=== PATIENT | female | born 1950 | race Caucasian/White ===

== ENCOUNTER 2019-02-20 16:45 | Inpatient (IN) ==
[2019-02-20] MEDS ORDERED: NICODERM PATCH TD PRN (19:30)
--- NOTE | 2019-02-20 20:18 | HISTORY AND PHYSICAL ---
CHIEF COMPLAINT: Cough, shortness of breath, wheezing since last Monday. HISTORY OF PRESENT ILLNESS: She is a 69-year-old white female has been suffering from metastatic pancreatic cancer, under the care of [facility] in [place], getting chemotherapy as well as radiation therapy to the liver, also getting hemodialysis twice a week by Dr. Saxena. Came in with the above symptoms. She is markedly wheezing, appears to be in mild respiratory distress. Continues to smoke. Chest x-ray is negative, except for the dialysis catheter on the right side and port on the left side. Admitted to the hospital for acute COPD exacerbation. PAST MEDICAL HISTORY: COPD, end-stage kidney disease on dialysis, atypical chest pain, Cardiolite stress test was negative November 2018, depression, type 2 diabetes, acid reflux disease, hypertension, metastatic pancreatic cancer, posterior reversible encephalopathy syndrome, history of shingles at C7-T1 distribution on the right side. PAST SURGICAL HISTORY: Cholecystectomy, hysterectomy, left-sided port, bilateral cataract surgery, right subclavian tunnel catheter, AV graft on the left side is nonfunctioning. MEDICATIONS: Xanax 0.25 once daily. Amlodipine 10 daily. Coreg 25 p.o. b.i.d. Clonidine 0.2 twice daily. Furosemide as needed. Hydralazine 50 twice daily. Prilosec 20 daily. Remeron 15 daily. Zoloft 50 daily. ALLERGIES: Cipro and Talwin. SOCIAL HISTORY: , 1 kid. Now smoking half a pack a day. No alcohol. No drug abuse. Lives in [place]. Retired from [employer]. FAMILY HISTORY: Father at the age of 79 from COPD. Mom is 85 years old with diabetes, hypertension, heart disease. Brothers had heart attacks. REVIEW OF SYSTEMS: HEENT: No headache. No vision problem. No earache. No sore throat. Neck: No goiter. No lymphadenopathy. No bruit. Cardiac: No chest pain. Respiratory: Shortness of breath, cough, and wheezing. Gastrointestinal: Upper abdominal discomfort. No bleeding per rectum. No constipation. Genitourinary: No history of hesitancy, frequency, dysuria. Musculoskeletal: No swelling of feet. No joint pain. Neurologic: No focal symptoms or weakness. EXAMINATION: Vital signs: In my office, she has a low-grade fever. Blood pressure is 136/65. Weight: 128 pounds. General: Mild respiratory distress. Slightly pale. HEENT: TMs are normal. Nose and throat within normal limits. Neck: Supple. JVD is not elevated. Chest: Tunneled catheter on the right side and port on the left side. Bilateral wheezing. Heart: Sounds are regular. Abdomen: Belly is soft, nontender. No ascites. Extremities: No peripheral edema. Neurological: No neurological deficits. DIAGNOSTIC STUDIES: Chest x-ray is stable. Rest of the labs are pending. ASSESSMENT AND PLAN: A 69-year-old white female, admitted to the hospital with: 1. Acute chronic obstructive pulmonary disease exacerbation. Oxygen, IV steroids, IV antibiotics. 2. End-stage kidney disease, on dialysis twice a week. Patient is due for dialysis on Monday. 3. Tobacco abuse. Quit smoking. 4. Acid reflux disease. On Prilosec. 5. Reactive depression. On Zoloft and Xanax. 6. Type 2 diabetes. On Lantus and Humalog. 7. Hypertension. On hydralazine, Norvasc, Coreg and Lasix. 8. Insomnia. On Remeron. 9. Metastatic pancreatic cancer. Under the care of [facility]. Recently had some radiation treatment to the liver. 10. Monoclonal gammopathy of unknown significance, stable. 11. History of posterior reversible encephalopathy syndrome, stable. Patient is not taking seizure medications. 12. Left arm arteriovenous graft is not working. Using tunnel catheter. 13. Reconcile home medications and we will follow up. cc: Tyree Lucas MD
[2019-02-20 20:39] LABS: BASO# 0.04 X1000 (0.0-0.2); BASO% 0.3 % (0.0-0.8); EOS% 2.5 % (0.0-10.0); HEMOGLOBIN 10.4 g/dL (12.0-16.0); IMM GRAN# 0.53 X1000 (0.0-0.04); IMM GRAN% 4.4 % (0.0-0.5); LYMPH# 1.14 X1000 (1.2-3.4); LYMPH% 9.4 % (20.5-51.1); MCH 31.9 PG (27-31); MCHC 31.5 g/dL (33-37); MCV 101.2 FL (81-99); MONO% 11.5 % (1.7-9.3); MPV 10.4 FL (7.4-10.4); NEUT# 8.75 X1000 (1.4-6.5); NEUT% 71.9 % (42.2-75.2); PLT 150 X1000 (130-400); RBC 3.26 XMIL (4.2-5.4); RDW 14.9 % (11.5-14.5); WBC 12.16 X1000 (4.8-10.8)
[2019-02-20 20:55] LABS: ALB/GLOB RATIO 1.5; ALBUMIN 3.8 g/dL (3.5-5.0); BANDS 1 % (0-1); CALCIUM 8.5 mg/dL (8.8-10.2); CREATININE 2.3 mg/dL (0.5-0.9); EOS 1 % (1-10); LYMPHS 2 % (21-51); MONO 11 % (1-9); POTASSIUM 4.1 mmol/L (3.5-5.1); SEGS 85 % (42-75); TOTAL BILIRUBIN 0.29 mg/dL (0.20-1.00); TOTAL PROTEIN 6.4 g/dL (6.3-8.3)
[2019-02-20] MEDS: DUONEB (A & A) INH PRN (21:26)
[2019-02-20] MEDS: REMERON PO SCH (22:07)
[2019-02-20] MEDS: COREG PO SCH (22:07)
[2019-02-20] MEDS: APRESOLINE PO SCH (22:07)
[2019-02-20] MEDS: ATIVAN PO SCH (22:07)
[2019-02-20] MEDS: LOVENOX SUBQ SCH (22:08)
[2019-02-20] MEDS: ROCEPHIN 1 GM in NS 50 ML IV SCH (22:08)
[2019-02-20] MEDS: LANTUS INSULIN SUBQ SCH (22:08)
[2019-02-20] MEDS: HUMULIN R SUBQ SCH ×2 (22:09→22:15)
[2019-02-20 22:15] LABS: ALLEN TEST YES; BE -1.9 mmoll (-3.0-3.0); BLOOD TYPE ARTERIAL; HCO3-(ACT) 23.4 mmoll (20.0-26.0); METHB 0.6 % (0.0-1.5); O2(CT) 13.7 mL/dL (15.0-23.0); O2HB 93.4 % (95.0-99.0); PCO2(98.6) 34 mmHg (35-45); PO2(98.6) 67 mmHg (60-100); SAMPLE BLOOD; SAO2 95.2 % (95.0-100.0); THB 10.4 g/dL (11.5-17.4); pH(98.6) 7.42 (7.35-7.45)
[2019-02-20 22:16] LABS: MODALITY ROOM AIR
[2019-02-20] MEDS: ZITHROMAX 500 MG/NS 500 MG/250 ML IVPB IV SCH (22:37)
[2019-02-21] MEDS: HUMULIN R SUBQ SCH ×5 (06:32→23:13)
[2019-02-21] MEDS: BREO ELLIPTA 100/25 MCG INH INH SCH (07:34)
[2019-02-21] MEDS: DUONEB (A & A) INH PRN ×2 (07:35→15:20)
[2019-02-21] MEDS: SPIRIVA INH SCH (07:35)
[2019-02-21] MEDS: NORVASC PO SCH (08:18)
[2019-02-21] MEDS: SOLU-MEDROL IV SCH (08:18)
[2019-02-21] MEDS: APRESOLINE PO SCH ×2 (08:18→23:11)
[2019-02-21] MEDS: COREG PO SCH ×2 (08:18→23:18)
[2019-02-21] MEDS: ASPIRIN PO SCH (08:18)
[2019-02-21 08:21] LABS: URINE SOURCE CLEAN CATCH
[2019-02-21 08:37] LABS: BILIRUBIN URINE NEGATIVE (NEGATIVE); BLOOD URINE NEGATIVE (NEGATIVE); COLOR YELLOW; GLUCOSE URINE 200 mg/dL (NEGATIVE); KETONE URINE NEGATIVE (NEGATIVE); LEUKOCYTES URINE NEGATIVE (NEGATIVE); NITRITE URINE NEGATIVE (NEGATIVE); PROTEIN URINE 50 mg/dL (NEGATIVE); SP GRAVITY URINE 1.011; TURBIDITY URINE CLEAR (CLEAR); UROBILINOGEN URINE NORMAL (NORMAL)
[2019-02-21 08:39] LABS: UR EPITHELIAL CELLS <10 /HPF (<10); URINE BACTERIA NEGATIVE /HPF; URINE RBC <10 /HPF (<10); URINE WBC <10 /HPF (<10)
--- NOTE | 2019-02-21 22:45 | PROGRESS NOTE ---
DATE: 02/21/2019 SUBJECTIVE: The patient is getting better. Still wheezing. Withdrawal from smoking. No chest pain. Blood sugars running high. Blood pressure is running high. The patient is due for dialysis tomorrow. OBJECTIVE: Vital signs: Temperature is 97.9 degrees, pulse 78, blood pressure is 170/75. HEENT: Within normal limits. Neck: Supple. No lymphadenopathy. Chest: Bilateral air entry wheezing. Heart: Sounds are regular. Abdomen: Belly is soft, nontender. Neurologic: No neurological deficits. INVESTIGATIONS: None reported. Creatinine 2.3. Glucose 260. LFTs were high. ASSESSMENT AND PLAN: 1. Acute chronic obstructive pulmonary disease exacerbation. Plan is nicotine patch, IV steroids, bronchodilators, IV antibiotics with Zithromax and Rocephin. 2. Uncontrolled diabetes, worsening. Increasing the Lantus insulin 20 units along with sliding scale insulin coverage. 3. End-stage kidney disease on dialysis tomorrow. We will ask Dr. Saxena to consult. 4. Metastatic pancreatic cancer, status post chemotherapy and radiation as per [facility] in [place]. 5. Hypertension. Continue present treatment. 6. Deep venous thrombosis prophylaxis and repeat the labs in the morning. LEVEL OF DOCUMENTATION: 25 minutes. cc: Tyree Lucas MD
[2019-02-21] MEDS: ROCEPHIN 1 GM in NS 50 ML IV SCH (23:09)
[2019-02-21] MEDS: ATIVAN PO SCH (23:12)
[2019-02-21] MEDS: REMERON PO SCH (23:12)
[2019-02-21] MEDS: LOVENOX SUBQ SCH (23:14)
[2019-02-21] MEDS: LANTUS INSULIN SUBQ SCH (23:14)
[2019-02-22] MEDS: ZITHROMAX 500 MG/NS 500 MG/250 ML IVPB IV SCH (01:04)
[2019-02-22] MEDS: HUMULIN R SUBQ SCH ×3 (06:48→17:37)
[2019-02-22] MEDS ORDERED: TIGHT: 0.2 ML/HR FOR DIALYSIS MISC PRN (07:30)
[2019-02-22] MEDS ORDERED: HEPARIN IV PRN (07:30)
[2019-02-22] MEDS ORDERED: NS 2,000 ML MISC PRN (07:30)
[2019-02-22 07:51] LABS: CALCIUM 9.1 mg/dL (8.8-10.2); CREATININE 2.4 mg/dL (0.5-0.9); POTASSIUM 4.5 mmol/L (3.5-5.1)
[2019-02-22 09:18] LABS: BASO# 0.12 X1000 (0.0-0.2); BASO% 0.9 % (0.0-0.8); EOS# 0.06 X1000 (0.0-0.7); EOS% 0.4 % (0.0-10.0); HEMATOCRIT 32.2 % (37.0-47.0); HEMOGLOBIN 10.3 g/dL (12.0-16.0); IMM GRAN# 0.58 X1000 (0.0-0.04); IMM GRAN% 4.1 % (0.0-0.5); LYMPH# 0.62 X1000 (1.2-3.4); LYMPH% 4.4 % (20.5-51.1); MCH 33.4 PG (27-31); MCV 104.5 FL (81-99); MONO# 1.15 X1000 (0.11-0.59); MONO% 8.2 % (1.7-9.3); NEUT# 11.58 X1000 (1.4-6.5); PLT 127 X1000 (130-400); RBC 3.08 XMIL (4.2-5.4); RDW 15.6 % (11.5-14.5); WBC 14.11 X1000 (4.8-10.8)
[2019-02-22] MEDS: SPIRIVA INH SCH (10:54)
[2019-02-22] MEDS: BREO ELLIPTA 100/25 MCG INH INH SCH (10:55)
[2019-02-22 11:54] VITALS: BP 189/73
[2019-02-22] MEDS: COREG PO SCH (11:58)
[2019-02-22] MEDS: NORVASC PO SCH (11:58)
[2019-02-22] MEDS: ASPIRIN PO SCH (11:58)
[2019-02-22] MEDS: APRESOLINE PO SCH (11:58)
[2019-02-22] MEDS: SOLU-MEDROL IV SCH (11:58)
--- NOTE | 2019-02-22 14:11 | Diag Imaging Result Doc PS360 ---
EXAM: CHEST-2 VIEWS HISTORY: assess pulmonary edema TECHNIQUE: Chest two views COMPARISON: 03/29/2018 FINDINGS: The lungs are well expanded. The heart is not enlarged. No change in the double lumen right jugular line or in the left subclavian portacatheter. The vessels are not distended. There are no infiltrates. No pleural effusions. Mild compression to the T12 vertebra not present on 03/03/2018. IMPRESSION: No pulmonary edema. Electronically signed by Bonilla Mackay 02/22/2019 2:08 PM
--- NOTE | 2019-02-22 17:16 | NEPHROLOGY CONSULTATION ---
DATE: 02/22/2019 REASON FOR CONSULTATION: Assistance with management. I was contacted directly by Dr. Lucas. HISTORY OF PRESENT ILLNESS: Ms. Rangel is a 69-year-old, white female with multiple medical problems. She has pancreatic cancer and is undergoing chemotherapy for management of this. She has stage 5 chronic kidney disease and is receiving routine hemodialysis. She goes twice weekly. Within the last 2 weeks, she has been complaining of feeling bad after dialysis and getting very little fluid. I replaced her with 2 L of fluid such that she went out about 1.5 kg above her dry weight. She states she felt much better after this and has required very little ultrafiltration at dialysis. However, she sought attention with Dr. Lucas yesterday because of worsening shortness of breath and cough. His clinical evaluation in his office led to a diagnosis of COPD exacerbation. She was admitted to the hospital and treated accordingly. She is receiving methylprednisolone and ceftriaxone as well as inhaled bronchodilators. Her symptoms are significantly better this morning. According to her dry weight, she was approximately 3 kg over her newly increased dry weight as of this morning. PAST MEDICAL HISTORY: As above. She also has diabetes, hypertension, and hyperlipidemia. HOME MEDICATIONS: Include carvedilol, mirtazapine, cephalexin, hydralazine, insulin, omeprazole, ondansetron, oxycodone, pantoprazole, pyridoxine, sertraline, cetirizine, alprazolam. ALLERGIES: Propoxyphene, ciprofloxacin. SOCIAL HISTORY: She is and lives alone. Continues to smoke. No alcohol. FAMILY HISTORY: Otherwise noncontributory. REVIEW OF SYSTEMS: Otherwise noncontributory. PHYSICAL EXAMINATION: Vital Signs: Blood pressure 185/84, heart rate 83, respirations 17, afebrile. General: No acute distress. Skin is warm and dry. HEENT: Conjunctivae are pink. Pupils are equal. Neck veins are not distended. Heart: Regular. No gallops. Lungs: Equal. No crackles or wheezes. Abdomen: Soft, nontender. Bowel sounds are present. Extremities: Have no edema, clubbing, or cyanosis. Neurologic: Examination grossly nonfocal. IMPRESSION: Chronic kidney disease stage 5D. She has some residual renal function and is only dialyzing twice weekly. We did recently adjust her dry weight as above and so it is certainly possible that this change has led to pulmonary edema, though her clinical exam and x-ray did not support that in Dr. Lucas's office. We will continue her current dry weight and see how she tolerates 3 L of ultrafiltration today. Her electrolytes, acid-base, and anemia are all in target. Blood pressure is above target but we will reassess after dialysis. cc: MD Tyree Estrada MD [facility]
--- NOTE | 2019-02-24 07:39 | DISCHARGE SUMMARY ---
ADMISSION DATE: 02/20/2019 DISCHARGE DATE: 02/22/2019 DISCHARGING DIAGNOSIS: 1. Acute chronic obstructive pulmonary disease exacerbation. 2. End-stage kidney disease on hemodialysis, slowly improving. 3. Depression. 4. Type 2 diabetes. 5. Hypertension. 6. Acid reflux disease. 7. Metastatic pancreatic cancer. 8. History of posterior reversible encephalopathy syndrome. CONSULTS: Dr. Saxena. PROCEDURE: Inpatient dialysis. BRIEF HISTORY: Please see the H and P that was done on 02/20/2019. In brief, she is a 69-year- old white female with above problems who came in my office with cough, shortness of breath, and wheezing. The patient was very bronchospastic. Chest x-ray was stable. She continues to smoke. She has been on radiation and chemotherapy for metastatic pancreatic cancer at [facility]. The patient got better with IV steroids, bronchodilators and IV antibiotics. LABORATORY DATA: CBC: White cell count 14, hematocrit 32, platelet 127,000. Sodium 140, potassium 4.5, chloride 108, BUN 47, creatinine 2.4, glucose 173, calcium 9.1. Elevated liver function tests. Urinalysis is clear. Chest x-ray had a tunneled catheter on the right side, port on the left side. Creatinine was improving. Dr. Saxena is slowly downgrading the frequency of the hemodialysis, right now she is getting it twice a week. DISCHARGE INSTRUCTIONS: 1. Coreg 25 p.o. b.i.d. 2. Remeron 15 mg at bedtime. 3. Hydralazine 100 p.o. b.i.d. 4. Lantus 20 units at bedtime. 5. Humulin regular insulin as per sliding scale. 6. Prilosec 20 daily. 7. Percocet 1 tablet q.6 as needed for pain. 8. Protonix 40 mg daily. 9. Pyridoxine 25 mg daily. 10. Zoloft 50 daily. 11. Cetirizine 10 daily. 12. Xanax 0.25 at bedtime. 13. Levaquin 250 daily. 14. Continue the inhalers which include Breo and Spiriva as directed. Quit smoking. Follow up with Dr. Saxena for maintenance for hemodialysis and also metastatic pancreatic cancer with [facility]. cc: MD Jake Cutler MD [facility]
== END 2019-02-22 20:07 | disposition home or self-care (01) | DRG 190 ==
LOC: DIRADM 16:45 → 3N 20:02
PROVIDERS: ADMIT Internal Medicine; ATTEND Internal Medicine
CPT/HCPCS: 71020; 71046; 80048; 80053; 81001; 82805; 82948; 85025; 94640; 94760; 94761; A9270; J0456; J0696; J1644; J1650; J1815; J2930; J7030; XXXXX

== ENCOUNTER 2019-07-08 11:59 | Inpatient (IN) ==
[2019-07-08] MEDS ORDERED: PERCOCET-5 PO PRN (14:30)
--- NOTE | 2019-07-08 14:45 | EKG Report ---
Test Performed on : 07/08/2019 2:39:35 PM Test Reason : chest pain Blood Pressure : / mmHG Vent. Rate : 080 BPM Atrial Rate : 080 BPM P-R Int : 154 ms QRS Dur : 084 ms QT Int : 396 ms P-R-T Axes : 087 087 080 degrees QTc Int : 456 ms Normal sinus rhythm. Nonspecific ST abnormality Abnormal ECG When compared with ECG of 11-APR-2019 20:13, ST now depressed in Inferior leads ST now depressed in Lateral leads Unconfirmed Result
[2019-07-08 15:08] LABS: BASO# 0.03 X1000 (0.0-0.2); BASO% 0.3 % (0.0-0.8); EOS# 0.15 X1000 (0.0-0.7); EOS% 1.5 % (0.0-10.0); HEMATOCRIT 40.4 % (37.0-47.0); HEMOGLOBIN 13.1 g/dL (12.0-16.0); IMM GRAN# 0.12 X1000 (0.0-0.04); IMM GRAN% 1.2 % (0.0-0.5); LYMPH# 0.79 X1000 (1.2-3.4); MCH 32.1 PG (27-31); MCHC 32.4 g/dL (33-37); MONO# 1.11 X1000 (0.11-0.59); MONO% 11.2 % (1.7-9.3); MPV 10.3 FL (7.4-10.4); NEUT# 7.73 X1000 (1.4-6.5); NEUT% 77.8 % (42.2-75.2); PLT 110 X1000 (130-400); RBC 4.08 XMIL (4.2-5.4); RDW 15.7 % (11.5-14.5); WBC 9.93 X1000 (4.8-10.8)
[2019-07-08 15:27] LABS: CALCIUM 8.1 mg/dL (8.8-10.2); CALCIUM 8.5 mg/dL (8.8-10.2); CREATININE 2.4 mg/dL (0.5-0.9); POTASSIUM 3.5 mmol/L (3.5-5.1); TOTAL BILIRUBIN 1.18 mg/dL (0.20-1.00); TOTAL PROTEIN 5.9 g/dL (6.3-8.3)
[2019-07-08] MEDS ORDERED: APRESOLINE PO ONE (15:55)
[2019-07-08] MEDS: SODIUM CHLORIDE 0.9% INJ SCH (16:07)
[2019-07-08] MEDS: PROTONIX IV SCH (16:07)
[2019-07-08] MEDS: ROCEPHIN 1 GM in NS 50 ML IV SCH (16:17)
[2019-07-08] MEDS: DUONEB (A & A) INH PRN ×2 (16:32→22:59)
[2019-07-08] MEDS: HUMULIN R SUBQ SCH ×2 (17:09→20:52)
[2019-07-08] MEDS: ZITHROMAX 500 MG/NS 500 MG/250 ML IVPB IV SCH (18:54)
--- NOTE | 2019-07-08 19:12 | GENERAL SURGERY CONSULTATION ---
DATE: 07/08/2019 REQUESTING PHYSICIAN: Dr. Lucas. CONSULT CONCERNING: Jugular vein thrombosis. HISTORY OF PRESENT ILLNESS: A 69-year-old female, well known to me who I placed a graft in her arm. She has had it clotted off. She does have a history of pancreatic cancer, which she should be receiving therapy for. She presented to the emergency department initially with left arm swelling. Had an ultrasound that showed an occlusion of her graft in her left upper extremity which is known and a jugular vein thrombosis. I was asked to weigh an opinion of the patient without significant issues at this point or significant complaints. Says she is not hurting in her neck at this moment. PAST MEDICAL HISTORY: COPD, chronic kidney disease, atypical chest pain, depression, type 2 diabetes, acid reflux, metastatic pancreatic cancer, posterior reversible encephalopathy syndrome, history of shingles, hypertension. PAST SURGICAL HISTORY: Includes cholecystectomy, hysterectomy, left subclavian port, bilateral cataract surgery, tunneled catheter placements, and AV graft. ALLERGIES: Full list reviewed. HOME MEDICATIONS: Reviewed. MAR reviewed. SOCIAL: Smoker. FAMILY HISTORY: Positive for COPD. REVIEW OF SYSTEMS: Full 14 systems reviewed and negative as specified in HPI. PHYSICAL EXAMINATION: Vital Signs: Patient is currently afebrile. Her vital signs stable. General: No acute distress. HEENT: Normocephalic, atraumatic. Pupils equal, round, reactive to light. Mucous membranes moist. Oropharynx benign. Neck: Supple. Trachea midline. Cardiovascular: Regular rate and rhythm. Lungs: Grossly clear. Abdomen: Soft, nontender, nondistended. Extremities: No real swelling noted to the left upper extremity at this time. Vascular: All extremities perfused. Neurologic: Grossly intact. Skin: No signs of jaundice. LABORATORY: White blood cell count is normal. Hematocrit is normal. Platelet count 110,000. ASSESSMENT/PLAN: A 69-year-old female with jugular vein thrombosis. Jugular vein thrombosis. At this time, agree with putting her on anticoagulation. She does have a port in, but it is subclavian. This may or may not be contributing to it, but she needs it for her metastatic cancer. At this time, I would recommend transition over to Coumadin or Xarelto, but she has been started on at least therapeutic Lovenox. Would like to see how she responds at this and plan on repeating the imaging in the near future. I appreciate the consult. Kenji#: [id number] cc: MD Tyree Toribio MD
[2019-07-08] MEDS: APRESOLINE PO SCH (20:49)
[2019-07-08] MEDS: XANAX PO SCH (20:49)
[2019-07-08] MEDS: REMERON PO SCH (20:50)
[2019-07-08] MEDS: LOVENOX SUBQ SCH (20:51)
[2019-07-08] MEDS: LANTUS INSULIN SUBQ SCH (20:52)
[2019-07-08] MEDS ORDERED: APRESOLINE IV PRN (21:23)
--- NOTE | 2019-07-08 22:19 | HISTORY AND PHYSICAL ---
CHIEF COMPLAINT: 1. Left-sided neck pain. 2. Cough. Shortness of breath. Wheezing. HISTORY OF PRESENT ILLNESS: She is a 69-year-old white female who was seen in the emergency room on 07/05/2019. Sent home on Levaquin and Coumadin. She had extremity venous studies on the left side reported left IJ thrombosis. She has a port on the left side. She is not receiving any chemo for underlying metastatic pancreatic cancer for the last 2 months. She also has a cough, shortness of breath, wheezing. Chest x-ray left lingular infiltrate. The patient fails to improve over the weekend and called my office today that she is not doing very well. Basically, admitted to the hospital for IV antibiotics, anticoagulation and further management. Dr. Francisco Javier Saenz's consult was initiated. Whether we will need to keep the port or not. He has also put the AV graft on the left arm which is nonfunctional. She is off dialysis. As a result, a hospital admission was warranted. PAST MEDICAL HISTORY: COPD, oxygen dependent, chronic renal failure off hemodialysis, creatinine is 2.6. Noncritical CAD, depression, type 2 diabetes, acid reflux disease, hypertension, monoclonal gammopathy of unknown significance, IgG kappa metastatic pancreatic cancer off chemotherapy, posterior reversible encephalopathy syndrome, history of shingles on the C7-T1 distribution on the right side. PAST SURGICAL HISTORY: Cholecystectomy, hysterectomy, left-sided port, bilateral cataract surgery, removal of subclavian tunnel catheter, status post AV graft on the left side by Dr. Francisco Javier Saenz. MEDICATIONS: Coreg 25 p.o. b.i.d., Remeron 15 mg at bedtime, hydralazine 100 p.o. b.i.d., Lantus 20 units at bedtime, Prilosec 20 daily, Zofran 8 mg as needed, pyridoxine 25 daily, Zoloft 50 daily, Cetirizine 10 daily, Xanax 0.25 at bedtime. Recently started on warfarin and Levaquin. Lasix 40 mg daily. ALLERGIES: Propoxyphene, ciprofloxacin, pentazocine. SOCIAL HISTORY: [employer] lives in [place]. . One kid. Smoking half a pack a day. No drug abuse. No alcohol abuse. FAMILY HISTORY: Father of COPD at 79. Mom is still alive with 85 years old, history of chronic kidney disease, hypertension, diabetes. HEALTH MAINTENANCE: Influenza vaccine 2018, pneumococcal 2017. Last mammography 2017. Colonoscopy 2012. REVIEW OF SYSTEMS: HEENT: No headache. No vision problem. Left-sided neck pain and swelling. Cardiopulmonary: No chest pain. Shortness of breath, cough, and wheezing. GI: No nausea, vomiting, abdominal pain. : No history of hesitancy, frequency, dysuria. No swelling of legs. Skin: No skin rashes. No joint pain. Neurologic: No focal symptoms or weakness. PHYSICAL EXAMINATION: VITAL SIGNS: Temperature is 97.5 degrees, pulse is 80, blood pressure is 125/63, 93% on room air. HEENT: Atraumatic, normocephalic. Pupils equal, reactive to light. No jaundice. TMs are normal. Nose and throat congested. NECK: Supple. No lymphadenopathy. CHEST: Bilateral air entry, wheezing. HEART: Distant heart sounds and no signs of pneumonitis. BREAST EXAM: Deferred. ABDOMEN: Belly is soft, nontender. Good bowel sounds. EXTREMITIES: No peripheral edema or cyanosis. Left AV graft is nonfunctional. NEUROLOGIC: No obvious neurological deficits. INVESTIGATIONS: CBC: White cell count 9.9, hematocrit 40, platelets 110,000. Sodium 143, potassium 3.5, chloride 105, BUN 42, creatinine 2.4, glucose 293. LFTs were high. Chest x-ray left inguina infiltrate. EKG normal sinus QT interval [address] depression in inferior leads, nonspecific. Extremity venous study left-sided occlusion of the internal jugular vein thrombosis, chronically occluded brachial AV graft. ASSESSMENT AND PLAN: 1. A 69-year-old white female admitted to the hospital with left internal jugular thrombosis with underlying port and pancreatic cancer. We will start on Lovenox 40 subcu b.i.d.. Surgical consult whether we need to remove the port or not. Slowly transition into either Coumadin on Xarelto. We will adjust based on the creatinine clearance. 2. Type 2 diabetes on Lantus and sliding scale with insulin coverage. 3. Chronic obstructive pulmonary disease exacerbation. Oxygen, bronchodilators and IV steroids. 4. Antibiotics with ceftriaxone and Zithromax. 5. Chronic kidney disease, stable. 6. Hypertension with posterior encephalopathy reversible syndrome (PERS syndrome). Continue the hydralazine 100 p.o. b.i.d. and we will use these as needed. 7. Reactive depression. Continue on Remeron and Zoloft. 8. Peripheral neuropathy on pyridoxine. 9. Chronic anxiety on Xanax. 10. Chronic pain. Percocet as needed. 11. Flu shot was given 2018. 12. Quit smoking. 13. Metastatic pancreatic cancer under care of [facility]. Slightly worsening of the pancreatic cancer. The CA19-9 is increasing and we will follow up. I appreciated Dr. Francisco Javier Saenz's consult. cc: Tyree Lucas MD
[2019-07-09] MEDS: HUMULIN R SUBQ SCH ×4 (06:04→20:58)
[2019-07-09 07:03] LABS: URINE SOURCE CLEAN CATCH
[2019-07-09 07:09] LABS: BILIRUBIN URINE NEGATIVE (NEGATIVE); BLOOD URINE NEGATIVE (NEGATIVE); COLOR YELLOW; GLUCOSE URINE TRACE mg/dL (NEGATIVE); KETONE URINE NEGATIVE (NEGATIVE); LEUKOCYTES URINE NEGATIVE (NEGATIVE); NITRITE URINE NEGATIVE (NEGATIVE); PROTEIN URINE 30 mg/dL (NEGATIVE); SP GRAVITY URINE 1.015; TURBIDITY URINE CLEAR (CLEAR); UROBILINOGEN URINE NORMAL (NORMAL)
[2019-07-09 07:10] LABS: UR EPITHELIAL CELLS <10 /HPF (<10); URINE BACTERIA NEGATIVE /HPF; URINE RBC <10 /HPF (<10); URINE WBC <10 /HPF (<10)
--- NOTE | 2019-07-09 08:23 | GENERAL SURGERY PROGRESS NOTE ---
DATE: 07/09/2019 SUBJECTIVE: Patient seems to be doing okay. She says she is hurting less. OBJECTIVE: Vital Signs: Patient is currently afebrile. Her vital signs are stable. General: No acute distress. HEENT: Normocephalic, atraumatic. Pupils equal, round, and reactive to light. Mucous membranes moist. Oropharynx benign. Neck: Supple. Trachea midline. Cardiovascular: Regular rate and rhythm. Lungs: Grossly clear. Abdomen: Soft, nontender, nondistended. Extremities: No swelling noted of left upper extremity. Vascular: All extremities perfused. Neurologic: Grossly intact. LABORATORY: None this morning as of yet. ASSESSMENT AND PLAN: A 69-year-old female with jugular vein thrombus. Jugular vein thrombus on the left side at this time. She is having a hypercoagulable state secondary to her cancer. She does have metastatic pancreatic cancer. She does have a subclavian port, but at this time it sounds like she needs the port for chemotherapy. She does not seem to have an axillary vein issue at this point on the ultrasound so I do not think it is occluding the whole area. Thus, I do not know if removal will expedite the resolution of the DVT. At this point, I would recommend to continue anticoagulation and follow-up ultrasound of her neck and upper extremities in the next several months. cc: MD Tyree Toribio MD [facility]
[2019-07-09] MEDS: PYRIDOXINE PO SCH (09:56)
[2019-07-09] MEDS: ZYRTEC PO SCH (09:57)
[2019-07-09] MEDS: LOVENOX SUBQ SCH ×2 (09:57→20:57)
[2019-07-09] MEDS: APRESOLINE PO SCH ×2 (09:57→20:57)
[2019-07-09] MEDS: ZOLOFT PO SCH (09:57)
[2019-07-09] MEDS: SOLU-MEDROL IV SCH (09:57)
[2019-07-09] MEDS: DUONEB (A & A) INH PRN ×2 (13:27→23:41)
[2019-07-09] MEDS: ROCEPHIN 1 GM in NS 50 ML IV SCH (14:26)
[2019-07-09] MEDS: PROTONIX IV SCH (14:26)
[2019-07-09] MEDS: SODIUM CHLORIDE 0.9% INJ SCH (14:27)
[2019-07-09] MEDS: ZITHROMAX 500 MG/NS 500 MG/250 ML IVPB IV SCH (16:51)
[2019-07-09] MEDS: LANTUS INSULIN SUBQ SCH (20:58)
[2019-07-09] MEDS: XANAX PO SCH (21:02)
[2019-07-09] MEDS: REMERON PO SCH (21:02)
--- NOTE | 2019-07-09 21:24 | PROGRESS NOTE ---
DATE: 07/09/2019 SUBJECTIVE: The patient is doing very well. Decreased cough and wheezing, shortness of breath. REVIEW OF SYSTEMS: None reported. PHYSICAL EXAMINATION: Temperature is 98 degrees, pulse 78. Blood pressure is stable.HEENT: Within normal limits. Neck: Supple. Chest: Decreased wheezing. Heart sounds are regular. Belly is soft, nontender. No obvious deficits. INVESTIGATIONS: CBC: White cell count 9.9, hematocrit 40, platelets 110,000. SMA 7: Creatinine 2.4. ASSESSMENT AND PLAN: 1. Chronic obstructive pulmonary disease with left lingular pneumonia. Currently receiving IV steroids, ceftriaxone, Zithromax, and bronchodilators. 2. 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 We will continue on Lovenox, adjusted dose with chronic kidney disease, and will slowly swap into oral anticoagulants. 3. Metastatic prostate cancer, history of port. Plan is check CA-19-9. 4. We will repeat the chest x-ray in the morning. 5. Hypertension and diabetes stable. Continue present treatment. LEVEL OF DOCUMENTATION: 25 minutes. cc: Tyree Lucas MD
[2019-07-10] MEDS: HUMULIN R SUBQ SCH ×5 (06:18→21:05)
--- NOTE | 2019-07-10 06:37 | GENERAL SURGERY PROGRESS NOTE ---
DATE: 07/10/2019 SUBJECTIVE: Patient seems to be doing okay. No complaints from the patient. OBJECTIVE: Vital Signs: Patient is currently afebrile. Her vital signs are stable. General: No acute distress. HEENT: Normocephalic, atraumatic. Pupils equal, round, and reactive to light. Mucous membranes moist. Oropharynx benign. Neck: Supple. No neck swelling. Trachea midline. Cardiovascular: Regular rate and rhythm. Lungs: Grossly clear. Abdomen: Soft, nontender, and nondistended. Extremities: Moves all extremities. No swelling noted. Vascular: All extremities perfused. Neurologic: Grossly intact. Skin: No signs of jaundice or phlegmasia. ASSESSMENT AND PLAN: A 69-year-old female with jugular vein thrombus. Jugular vein thrombus on the left side. At this time, continue anticoagulation. I think it is probably safe to start transitioning over to p.o. anticoagulation, but we will defer to her primary care physician. No immediate plans to remove the port at this time. cc: MD Tyree Toribio MD
[2019-07-10] MEDS: DUONEB (A & A) INH PRN ×3 (08:00→21:41)
[2019-07-10] MEDS: ZYRTEC PO SCH (09:22)
[2019-07-10] MEDS: ZOLOFT PO SCH (09:22)
[2019-07-10] MEDS: APRESOLINE PO SCH ×2 (09:22→20:58)
[2019-07-10] MEDS: PYRIDOXINE PO SCH (09:22)
[2019-07-10] MEDS: SOLU-MEDROL IV SCH (09:24)
[2019-07-10] MEDS: LOVENOX SUBQ SCH ×2 (09:27→21:00)
--- NOTE | 2019-07-10 10:12 | Diag Imaging Result Doc PS360 ---
EXAM: CHEST-2 VIEWS INDICATION: hypoxia TECHNIQUE: 2 views COMPARISON: 07/05/2019 FINDINGS: The left chest port is in stable position. There is stable nodular densities at the left lower lung zone. The ill-defined opacity at the lingula seen previously has diminished. This likely represents resolving atelectasis. No new consolidation is identified. There is no discrete pleural fluid collection or pneumothorax. The cardiomediastinal silhouette and central vasculature are grossly unremarkable. IMPRESSION: Interval improvement of mild opacity associated with the lingula on the previous study. Stable chest, otherwise. Electronically signed by Ramírez Gutierrez 07/10/2019 10:10 AM
[2019-07-10] MEDS: ROCEPHIN 1 GM in NS 50 ML IV SCH (15:52)
[2019-07-10] MEDS: SODIUM CHLORIDE 0.9% INJ SCH (15:53)
[2019-07-10] MEDS: MYCELEX TROCHE PO SCH ×2 (15:53→21:01)
[2019-07-10] MEDS: PROTONIX IV SCH (15:53)
[2019-07-10] MEDS ORDERED: MBX SOLUTION MT PRN (17:03)
[2019-07-10] MEDS: LASIX PO SCH (17:16)
[2019-07-10] MEDS: ZITHROMAX 500 MG/NS 500 MG/250 ML IVPB IV SCH (17:17)
[2019-07-10] MEDS: XANAX PO SCH (20:56)
[2019-07-10] MEDS: REMERON PO SCH (20:58)
[2019-07-10] MEDS: LANTUS INSULIN SUBQ SCH (21:02)
--- NOTE | 2019-07-10 23:28 | PROGRESS NOTE ---
DATE: 07/10/2019 SUBJECTIVE: The patient is a little better. Complains of oral thrush. OBJECTIVE: Vital signs: Temp is 98 degrees, pulse 103. Vitals are stable. Blood pressure is still running high. HEENT: Decreased swelling in the left neck. Lungs: Decreased wheezing. Heart: Sounds are regular. Abdomen: Belly is soft, nontender. Neurologic: No obvious deficits noted. INVESTIGATIONS: Chest x-ray was improving on the left lingular infiltrate. ASSESSMENT AND PLAN: 1. Left lingular pneumonia. 2. Chronic obstructive pulmonary disease exacerbation. 3. Left internal jugular thrombosis. 4. Metastatic pancreatic cancer. 5. Chronic kidney disease. Adjusted dose of Lovenox 30 mg subcutaneous b.i.d. I spoke to the patient about using the Eliquis or Xarelto. The patient is going to find out whether insurance is going to pay for or not. Check the CA-19-9 tomorrow. Added clotrimazole for oral thrush and slowly swap the medications over the weekend, either Eliquis or Xarelto, based on the insurance coverage. Other option is Coumadin. LEVEL OF DOCUMENTATION: 25 minutes. cc: Tyree Lucas MD [facility]
[2019-07-11] MEDS: MYCELEX TROCHE PO SCH ×4 (04:04→19:48)
[2019-07-11] MEDS: HUMULIN R SUBQ SCH ×5 (06:26→20:29)
[2019-07-11] MEDS: DUONEB (A & A) INH PRN (07:46)
[2019-07-11] MEDS: LASIX PO SCH (09:43)
[2019-07-11] MEDS: ZOLOFT PO SCH (09:43)
[2019-07-11] MEDS: ZYRTEC PO SCH (09:43)
[2019-07-11] MEDS: APRESOLINE PO SCH ×4 (09:43→20:29)
[2019-07-11] MEDS: SOLU-MEDROL IV SCH (09:43)
[2019-07-11] MEDS: PYRIDOXINE PO SCH (09:44)
[2019-07-11] MEDS: LANTUS INSULIN SUBQ SCH ×2 (09:44→20:29)
[2019-07-11] MEDS: LOVENOX SUBQ SCH ×3 (09:44→20:29)
--- NOTE | 2019-07-11 10:10 | GENERAL SURGERY PROGRESS NOTE ---
DATE: 07/11/2019 SUBJECTIVE: Patient seems to be doing okay. No major issues. OBJECTIVE: Vital Signs: Patient is currently afebrile. Her vital signs stable. General exam: No acute distress. HEENT: Normocephalic, atraumatic. Pupils equal, round, reactive to light. Mucous membranes moist oropharynx benign neck is supple. Trachea midline. Cardiovascular regular rhythm. Lungs grossly clear. Abdomen soft, nontender, nondistended. Extremities: Moves all extremities. No swelling noted. Vascular: All extremities perfused. Neurologic: Grossly intact. Skin: No signs of jaundice. ASSESSMENT AND PLAN: A 69-year-old female with jugular vein thrombosis: 1. Jugular vein thrombus on the left side. At this time, continue anticoagulation. Transition to p.o. anticoagulation when appropriate with the patient's primary care physician. 2. Also looks like she is being treated for pneumonia, so that will likely dictate how long she is in the hospital. 3. We will continue to follow. cc: MD Tyree Toribio MD
[2019-07-11] MEDS: ROCEPHIN 1 GM in NS 50 ML IV SCH (16:14)
[2019-07-11] MEDS: PROTONIX IV SCH (16:14)
[2019-07-11] MEDS: ZITHROMAX 500 MG/NS 500 MG/250 ML IVPB IV SCH (16:58)
[2019-07-11] MEDS: XANAX PO SCH ×2 (19:48→20:29)
[2019-07-11] MEDS: REMERON PO SCH ×2 (19:48→20:29)
--- NOTE | 2019-07-11 20:50 | PROGRESS NOTE ---
DATE: 07/11/2019 SUBJECTIVE: The patient is doing better. Pneumonia is getting better, and on examination, oral thrush is getting better. Patient is concerned blood pressure is running high, as well as blood sugars dropping in the morning. OBJECTIVE: HEENT exam within normal limits. No swelling in the left neck. Chest has bilateral air entry, and the heart sounds are regular. Belly is soft, nontender. Good bowel sounds. INVESTIGATIONS: CA19-9 is 2500. ASSESSMENT AND PLAN: 1. Metastatic pancreatic cancer, worsening. 2. Left internal jugular thrombosis. We will transition into Eliquis 5 mg p.o. b.i.d. 3. Chronic kidney disease, stable. 4. Hypertension. Increasing hydralazine 100 t.i.d. If no better, consider slowly titrating the medications. 5. Diabetes early hypoglycemia. Change the Lantus 10 units subcutaneous b.i.d. 6. Pneumonia is getting better and if she continues to get better, we will discharge in the morning. I appreciated Dr. Saenz's input. LEVEL OF DOCUMENTATION: 25 minutes. cc: Tyree Lucas MD MTDD
[2019-07-12] MEDS: MYCELEX TROCHE PO SCH ×2 (03:23→08:22)
[2019-07-12] MEDS ORDERED: D50W SYRINGE IV ONE (05:27)
[2019-07-12] MEDS ORDERED: D50W SYRINGE ONE (05:30)
[2019-07-12] MEDS: HUMULIN R SUBQ SCH (06:00)
--- NOTE | 2019-07-12 06:54 | GENERAL SURGERY PROGRESS NOTE ---
DATE: 07/12/2019 SUBJECTIVE: Patient doing well. She had a little bit of an issue with her blood sugar going down, but has done well since she was given some juice. She is complaining of a little bit of swelling on her left neck, but otherwise it is improving. OBJECTIVE: Vital Signs: Patient is currently afebrile. Her vital signs are stable. General: No acute distress. HEENT: Normocephalic, atraumatic. Pupils equal, round, and reactive to light. Mucous membranes moist. Oropharynx benign. Neck: Supple. Trachea midline. Cardiovascular: Regular rate and rhythm. Lungs: Grossly clear. Abdomen: Soft, nontender, and nondistended. Extremities: Moves all extremities. Neurologic: Grossly intact. Skin: No signs of jaundice. Vascular: All extremities perfused. LABORATORY: None this morning as of yet but she did have a glucose of 38. ASSESSMENT/PLAN: A 69-year-old female with jugular vein thrombosis. 1. Jugular vein thrombosis on the left side at this time continue anticoagulation. She has been continued on her Lovenox and will be transitioned over to Eliquis. 2. Hypoglycemia. At this time, it is improved clinically with p.o. intake. We will continue to follow while she is in the hospital. cc: MD Tyree Toribio MD
[2019-07-12 08:11] VITALS: BP 199/82
[2019-07-12] MEDS: ZOLOFT PO SCH (08:21)
[2019-07-12] MEDS: APRESOLINE PO SCH (08:21)
[2019-07-12] MEDS: PYRIDOXINE PO SCH (08:22)
[2019-07-12] MEDS: ZYRTEC PO SCH (08:22)
[2019-07-12] MEDS: LASIX PO SCH (08:22)
[2019-07-12] MEDS: LOVENOX SUBQ SCH (08:24)
[2019-07-12] MEDS: LANTUS INSULIN SUBQ SCH (08:25)
[2019-07-12] MEDS: SOLU-MEDROL IV SCH (08:25)
--- NOTE | 2019-07-13 16:34 | DISCHARGE SUMMARY ---
ADMISSION DATE: 07/08/2019 DISCHARGE DATE: 07/12/2019 DISCHARGING DIAGNOSES: 1. Left lingular pneumonia. 2. Left internal jugular thrombosis. 3. Chronic obstructive pulmonary disease on oxygen dependent. 4. Chronic renal failure, creatinine 2.6. 5. Noncritical coronary artery disease. 6. Depression. 7. Metastatic pancreatic cancer. 8. Type 2 diabetes. 9. Acid reflux disease. 10. Hypertension. 11. Monoclonal gammopathy of unknown significance, IgG kappa. 12. History of posterior reversible encephalopathy syndrome. 13. Port on the left side of the chest. 14. Malfunction of the arteriovenous graft in the left arm. CONSULTS: Dr. Saenz. BRIEF HISTORY: Please see the H and P that was done 07/08/2019. In brief, she is a 69-year-old white female who was admitted to the hospital with left internal jugular thrombosis and also cough, congestion and fever. Chest x-ray showed left lingular pneumonia. HOSPITAL COURSE: 1. The patient was given Lovenox for IJ thrombosis, subsequently, changed to the Eliquis. Dr. Saenz was consulted, and he does not want to remove the port at this time since she needs to the chemotherapy. 2. For pneumonia, she was given IV antibiotics with Rocephin and Zithromax and bronchodilators, IV steroids. 3. Blood sugars are dropping in the morning. I cut down the Lantus, 5 in the evening, 15 in the morning. 4. Blood pressure is running high. Increasing hydralazine 100 t.i.d. along with Coreg 25 p.o. b.i.d. 5. Elevated LFTs due to metastatic pancreatic cancer. She is off chemotherapy. CA-19-9 is increasing to 2500. LABS: At the time of discharge as follows CBC: White cell count 9.9, hematocrit 40, platelets 110,000. Sodium 143, potassium 3.5, BUN 42, creatinine 2.4, glucose 293. LFTs were high. CA-19- 9 2500. RADIOLOGY: Followup chest x-ray improving the lingular pneumonia. THE INSTRUCTIONS: Coreg 25 p.o. b.i.d., Remeron 15 at bedtime, hydralazine 100 t.i.d., Lantus 5 in the evening, 15 in the morning, Prilosec 20 daily, pyridoxine 25 daily, Zofran as needed for nausea, Zoloft 50 daily, Xanax 0.25 at bedtime, Lasix 40 daily, Eliquis 2.5 p.o. b.i.d., Levaquin 250 daily, Lorcet as needed for pain. FOLLOW UP: In my office next week. cc: MD Francisco Javier Cutler MD Reginald D. Gladish, MD [facility] Oncology
== END 2019-07-12 09:59 | disposition home or self-care (01) | DRG 314 ==
LOC: DIRADM 11:59 → 3N 13:05
PROVIDERS: ADMIT Internal Medicine; ATTEND Internal Medicine

== ENCOUNTER 2019-09-03 14:31 | Inpatient (IN) ==
[2019-09-03] MEDS ORDERED: DUONEB (A & A) INH ONE (15:49)
--- NOTE | 2019-09-03 16:05 | EKG Report ---
Test Performed on : 09/03/2019 2:42:03 PM Test Reason : SOB Blood Pressure : / mmHG Vent. Rate : 074 BPM Atrial Rate : 074 BPM P-R Int : 138 ms QRS Dur : 078 ms QT Int : 394 ms P-R-T Axes : 068 052 081 degrees QTc Int : 437 ms Normal sinus rhythm. Low voltage QRS Nonspecific ST and T wave abnormality Abnormal ECG No previous ECGs available Unconfirmed Result
[2019-09-03 16:59] LABS: BASO# 0.03 X1000 (0.0-0.2); BASO% 0.3 % (0.0-0.8); EOS# 0.18 X1000 (0.0-0.7); EOS% 1.7 % (0.0-10.0); HEMATOCRIT 27.8 % (37.0-47.0); HEMOGLOBIN 8.6 g/dL (12.0-16.0); IMM GRAN# 0.04 X1000 (0.0-0.04); IMM GRAN% 0.4 % (0.0-0.5); LYMPH# 0.59 X1000 (1.2-3.4); LYMPH% 5.5 % (20.5-51.1); MCH 32.5 PG (27-31); MCHC 30.9 g/dL (33-37); MCV 104.9 FL (81-99); MONO# 0.13 X1000 (0.11-0.59); MONO% 1.2 % (1.7-9.3); MPV 10.5 FL (7.4-10.4); NEUT# 9.82 X1000 (1.4-6.5); NEUT% 90.9 % (42.2-75.2); PLT 171 X1000 (130-400); RBC 2.65 XMIL (4.2-5.4); RDW 17.4 % (11.5-14.5); WBC 10.79 X1000 (4.8-10.8)
[2019-09-03 17:04] LABS: INR 1.11; PROTIME 14.5 Seconds (11.0-16.0)
[2019-09-03 17:06] LABS: CREATININE 1.5 mg/dL (0.5-0.9); POTASSIUM 4.6 mmol/L (3.5-5.1)
[2019-09-03 17:12] LABS: PTT 122.8 Seconds (22.3-41.8)
[2019-09-03] MEDS ORDERED: LASIX IV ONE (18:10)
--- NOTE | 2019-09-03 18:11 | Diag Imaging Result Doc PS360 ---
EXAM: CHEST-2 VIEWS HISTORY: SOB TECHNIQUE: Two views COMPARISON: 07/10/2019 FINDINGS: Development of a small left pleural effusion with basilar atelectasis. Could be underlying infiltrates as well. No cardiomegaly. Right lung remains clear. No change in the left subclavian portacatheter. No pneumothorax. Small scattered nodules are unchanged. IMPRESSION: Development of a small left effusion with basilar atelectasis and possibly underlying infiltrates. Electronically signed by Bonilla Mackay 09/03/2019 6:08 PM
[2019-09-03 18:25] LABS: ALLEN TEST YES; BE -3.2 mmoll (-3.0-3.0); BLOOD TYPE ARTERIAL; HCO3-(ACT) 22.3 mmoll (20.0-26.0); METHB 1.1 % (0.0-1.5); O2(CT) 12.6 mL/dL (15.0-23.0); PCO2(98.6) 34 mmHg (35-45); PO2(98.6) 59 mmHg (60-100); SAMPLE BLOOD; SAO2 94.4 % (95.0-100.0)
[2019-09-03 18:27] LABS: O2HB 89.2 % (95.0-99.0)
[2019-09-03 18:28] LABS: MODALITY ROOM AIR
[2019-09-03] MEDS ORDERED: HEPARIN SUBQ ONE (19:21)
--- NOTE | 2019-09-03 19:27 | PROVIDER DOCUMENTATION ---
This chart was entered by Li Balderas Scribe, acting as scribe for Tone Garcia MD. HPI-Respiratory General - General Chief Complaint: Shortness of Breath Stated Complaint: CANCER PT SOB WEAK CHEST PAIN Time Seen by Provider: 09/03/19 15:18 Source: patient, family (brother) Allergies/Adverse Reactions: Patient Allergies Allergy/AdvReac Type Severity Reaction Status Date / Time propoxyphene napsylate * Allergy Mild VOMITING Verified 04/11/18 08:42 [From Darvocet-N 100] ciprofloxacin [From Cipro] Allergy ITCHING Verified 04/11/18 08:42 ciprofloxacin HCl * Allergy ITCHING Verified 04/11/18 08:42 [From Cipro] pentazocine lactate * AdvReac Mild "makes Verified 04/11/18 08:42 [From Talwin] things float" Home Medications: Home Medication List Medication Instructions Recorded Confirmed Last Taken Type Carvedilol [Coreg] 25 mg PO BID #60 tab 01/01/18 07/09/19 07/07/19 21:00 Rx 25mg Mirtazapine [Remeron] 15 mg PO QHS 03/27/18 07/08/19 07/07/19 21:00 History 15mg Alprazolam [Xanax] 0.25 mg PO QHS 02/20/19 07/09/19 07/07/19 21:00 History 0.25mg Cetirizine HCl [Zyrtec] 10 mg PO DAILY PRN 02/20/19 02/20/19 Unknown History Insulin Glargine,Hum.rec.anlog 20 units SQ QHS 02/20/19 07/08/19 07/07/19 21:00 History [Lantus Solostar] Omeprazole 20 mg PO DAILY 02/20/19 07/08/19 07/07/19 07:00 History 20mg Pyridoxine HCl 25 mg PO DAILY 02/20/19 07/08/19 07/07/19 09:00 History 25mg Sertraline [Zoloft] 50 mg PO DAILY 02/20/19 07/09/19 07/07/19 09:00 History 50mg Furosemide [Lasix] 40 mg PO DAILY 07/08/19 07/08/19 07/07/19 09:00 History Apixaban [Eliquis] 2.5 mg PO BID #60 tab 07/12/19 Unknown Rx Hydralazine [Apresoline] 100 mg PO TID #90 tab 07/12/19 Unknown Rx Hydrocodone/Acetaminophen [Lorcet 1 ea PO TID #30 tab 07/12/19 Unknown Rx 5-325 mg Tablet] Levofloxacin [Levaquin] 250 mg PO DAILY #7 tab 07/12/19 Unknown Rx - History of Present Illness-Resp Nature of Presenting Problem: 69 yowf presents to the ed with c/o worsening sob. pt sts she became sob on monday and has just worsened with cough, fatigue and generalized weakness. pt sts has been off Eliquis for 5 days because she was waiting on more free samples from pcp. pt has pancreatic cancer with mets to liver and possible the lungs. pt on exam is speaking in 3-4 word sentences and sts exertion makes worse. pt sts has a clot in LUE Quality of Pain: reports: fullness Severity in ED: reports: mild Onset/Duration: reports: 4 days ago Timing: reports: still present, getting worse Context: reports: out of meds (eliquis) Exposure: reports: unknown cause Cough Quality/Degree: reports: mild, productive cough Episode Frequency: occasional episodes Current Respiratory Medication Therapy: Initiated see nurses note Modifying Factors: worse with: exertion Associated Symptoms: reports: cough, shortness of breath, wheezing. denies: chest pain/soreness Similar Symptoms Previously?: Yes Recently seen or treated by another doctor?: Yes (has seen oncology and pcp) Review of Systems - Adult - REVIEW OF SYSTEMS - ADULT Constitutional: denies: chills, fever Eyes: reports: no symptoms reported Ears, Nose, Mouth & Throat: reports: no symptoms reported Cardiovascular: denies: chest pain, palpitations Respiratory: reports: see HPI, cough, dyspnea on exertion, shortness of breath, wheezing Gastrointestinal: denies: abdominal pain, diarrhea, nausea, vomiting Genitourinary: reports: no symptoms reported Musculoskeletal: denies: back pain, neck pain Integumentary: reports: no symptoms reported Neurological: denies: dizziness/vertigo, headache/migraines Psychiatric: reports: no symptoms reported Endocrine: reports: no symptoms reported Hematologic/Lymphatic: reports: no symptoms reported Allergic/Immunologic: reports: no symptoms reported All Other Systems: Reviewed and Negative Past History - Adult - PAST MEDICAL HISTORY-ADULT Review of Records: reports: Old Records Reviewed, Nursing Assessment Review, Medications Reviewed, Social history reviewed & non-contributory. Major Childhood Illnesses: reports: denies history Cardiovascular: reports: blood clots (LUE), CHF, HTN, hyperlipidemia, MS Respiratory: reports: COPD Gastrointestinal: reports: cancer (metastatic pancreatic), other (ca pancreatitis) Genitourinary: reports: denies history, dialysis, kidney disease (ARF) Musculoskeletal: reports: denies history Neurological: reports: denies history Psychiatric: reports: denies history Endocrine/Immune: reports: Diabetes, immunosuppression Diabetes Type: Type 2 Other Conditions: reports: denies history - PRIOR SURGERIES/PROCEDURES Surgical/Procedure History: reports: cholecystectomy, hysterectomy - IMMUNIZATION STATUS Childhood Immunizations: See Nurse Assessment Flu Vaccine: See Nurse Assessment - FAMILY HISTORY Family History: reviewed, not pertinent - SOCIAL HISTORY Smoking: cigarettes, less than 1 pack/day Provider spent 3-5 mins advising pt. on dangers of tobacco.: Discussed manners to quit use, and f/u contacts for add'l counseling. Substance Use: denies Living Situation: family Physical Exam-General - PHYSICAL EXAM-ADULT Initial Vital Signs Reviewed: Yes (noted BP-206/83) - CONSTITUTIONAL General Appearance: alert, mild distress - EYES Eyes: PERRL/EOMI, pink conjunctivae - HEAD, EARS, NOSE, MOUTH & THROAT HENMT: other (pt has masked on due to fighting cancer) - NECK Neck: non-tender, full range of motion, normal inspection - RESPIRATORY Respiratory: chest non-tender, wheezing, increased rate (22), other (92% on RA) - CARDIOVASCULAR Cardiovascular: normal peripheral pulses, regular rate, rhythm - CHEST (BREASTS) Chest/Breast: deferred - GASTROINTESTINAL (ABDOMEN) Abdominal Exam: normal bowel sounds, non tender, soft - GENITOURINARY Female Genitalia/Pelvic Exam: deferred Rectal Exam: deferred Hemoccult Exam: deferred - LYMPHATIC Lymphatic: no adenopathy - MUSCULOSKELETAL Back Exam: normal inspection, no CVA tenderness, no vertebral tenderness Extremity: normal range of motion, non-tender, normal inspection - SKIN Integumentary: normal turgor, warm/dry, pallor - NEUROLOGIC Neurologic: grossly normal - PSYCHIATRIC Psych/Mental Status: normal mood/affect, normal thought content, normal thought process, oriented x 3 Progress - PLAN OF CARE/RESULTS Progress/Plan/Lab Results: Vital Signs - 8 hr 09/03/19 14:46 09/03/19 16:14 09/03/19 19:17 Temperature 98.1 F Pulse Rate 72 79 Respiratory Rate 22 16 Blood Pressure 206/83 O2 Sat by Pulse Oximetry 92 L 98 Laboratory Results - last 24 hr 09/03/19 09/03/19 09/03/19 16:12 16:12 16:12 WBC 10.79 RBC 2.65 L Hgb 8.6 L Hct 27.8 L MCV 104.9 H MCH 32.5 H MCHC 30.9 L RDW Std Deviation 17.4 H Plt Count 171 MPV 10.5 H Immature Gran % (Auto) 0.4 Neut % (Auto) 90.9 H Lymph % (Auto) 5.5 L Evans % (Auto) 1.2 L Eos % (Auto) 1.7 Baso % (Auto) 0.3 Immature Gran # (Auto) 0.04 Neut # (Auto) 9.82 H Lymph # (Auto) 0.59 L Evans # (Auto) 0.13 Eos # (Auto) 0.18 Baso # (Auto) 0.03 PT INR PTT (Actin FS) Specimen Type Sample Site pH pCO2 pO2 HCO3 Base Excess Oxyhemoglobin ABG O2 Sat (Calculated) ABG O2 Saturation ABG Carboxyhemoglobin ABG Methemoglobin Dayday Test A-a O2 Difference Total Hemoglobin Lactate Blood Gas Modality FiO2 % Sodium 142 Potassium 4.6 Chloride 111 H Carbon Dioxide 19 L Anion Gap 12 BUN 30 H Creatinine 1.5 H Estimated GFR/1.73 m2 34 BUN/Creatinine Ratio 20 Glucose 116 H Calculated Osmolality 290 Calcium 8.0 L Magnesium 2.0 Pwk-J-Ozihdqypxht Pept 84143 H 09/03/19 09/03/19 16:12 18:10 WBC RBC Hgb Hct MCV MCH MCHC RDW Std Deviation Plt Count MPV Immature Gran % (Auto) Neut % (Auto) Lymph % (Auto) Evans % (Auto) Eos % (Auto) Baso % (Auto) Immature Gran # (Auto) Neut # (Auto) Lymph # (Auto) Evans # (Auto) Eos # (Auto) Baso # (Auto) PT 14.5 INR 1.11 PTT (Actin FS) 122.8 H Specimen Type ARTERIAL Sample Site R RADIAL pH 7.40 pCO2 34 L pO2 59 L HCO3 22.3 Base Excess -3.2 L Oxyhemoglobin 89.2 L* ABG O2 Sat (Calculated) 12.6 L ABG O2 Saturation 94.4 L ABG Carboxyhemoglobin 4.40 H ABG Methemoglobin 1.1 Dayday Test YES A-a O2 Difference 48.0 Total Hemoglobin 10.0 L Lactate 0.80 Blood Gas Modality ROOM AIR FiO2 % 21.0 Sodium Potassium Chloride Carbon Dioxide Anion Gap BUN Creatinine Estimated GFR/1.73 m2 BUN/Creatinine Ratio Glucose Calculated Osmolality Calcium Magnesium Xtm-R-Ixifanbsxfi Pept Orders Category Date Time Status LUNG SCAN / VQ [NM] Stat Exams 09/03/19 17:14 Ordered cxr [CHEST-2 VIEWS] [RAD] Stat Exams 09/03/19 17:27 Completed ABG [RESP] Routine Lab 09/03/19 18:10 Completed BMP [BASIC METABOLIC PANEL] [CHEM] Stat Lab 09/03/19 16:12 Completed BNP [PRO B-NATRIURETIC PEPTIDE] Stat Lab 09/03/19 16:12 Completed CBC WITH ELECTRONIC DIFF [HEME] Stat Lab 09/03/19 16:12 Completed MAGNESIUM [CHEM] Stat Lab 09/03/19 16:12 Completed PT [PROTIME WITH INR] [COAG] Stat Lab 09/03/19 16:12 Completed PTT [COAG] Stat Lab 09/03/19 16:12 Completed Albuterol 2.5MG/Ipratrop 0.5MG [Duoneb (A & A)] Med 09/03/19 15:49 Discontinued 3 ml INH NOW ONE Furosemide [Lasix] Med 09/03/19 18:10 Discontinued 40 mg IV NOW ONE Heparin Med 09/03/19 19:21 Discontinued 5,000 unit SUBQ NOW ONE Aerosol Treatments Routine Oth 09/03/19 15:49 Completed Aerosol Treatments Stat Oth 09/03/19 15:49 Completed O2 Per Protocol Routine Oth 09/03/19 19:11 Active EKG [EKG] Stat Ther 09/03/19 14:49 Draft Result Diagrams: 09/03/19 16:12 09/03/19 16:12 - REASSESSMENT Reassessment #1 Time Reassessed: 18:31 Status: other (STILL PENDING HOSPITALIST TO CALL BACK FOR NEW CHF.) Reassessment #2 Time Reassessed: 19:25 Status: other (SPOKE TO HOSPITALIST; WILL ADMIT FOR NEW CHF AND ALSO TO R/O PE PATIENT SELF D/C ELIQUIS 1 WEEK AGO. WILL START ON HEPARIN SQ AND GET NMPS INPATIENT.) - EKG 1 Time of EKG reading by physician:: 14:42 EKG Read and Signed by:: Eleuterio De Luna EKG Interpretation (*Must complete 3 of following elements*): Abnormal Rate: 74 Rhythm: nsr Kennard: normal QRS: other (low volatge qrs) GA Interval: normal Comments: nonspecific ST and T wave abnormality Departure - Departure Date of Disposition Decision: 09/03/19 Time of Disposition Decision: 19:26 DIAGNOSIS: CHF (congestive heart failure) Disposition: ADMITTED INPATIENT 09 Certified Medical Emergency: Emergent Condition: Stable Referrals and Follow-Ups: Brenda Lucas MD [Primary Care Provider] - Discharge Education: Steps to Quit Smoking, [id number] - Critical Care Note This patient required my direct & personal management of CC.: No Attestation - Physician/ HAYDEN Attestation Patient care was provided by Advanced Practice Provider:: No The physician spent face to face time with patient:: Yes Advanced Practice Provider documentation review:: Supervising physician onsite and consulted in the evaluation and care of this patient. The physician did have a face to face encounter with the patient. This chart was documented by the indicated scribe, (Li Balderas Scribe) and accurately reflects the services I performed and decisions made by me, Tone Garcia MD, as attested by the provider's signature.
--- NOTE | 2019-09-03 20:39 | Diag Imaging Result Doc PS360 ---
EXAM: LUNG SCAN / VQ HISTORY: PANCREATIC CA W/ DVT STOPPED ELLIQUIS CAME W/ SOB TECHNIQUE: Nuclear medicine ventilation/perfusion lung scan COMPARISON: Chest x-ray performed earlier FINDINGS: 40.1 mCi DTPA used for the ventilation images. 5.8 mCi MAA given intravenously for the perfusion images. Patchy areas of decreased ventilation. No wedge shaped perfusion defect. There are small patchy ventilation and perfusion matching defects. IMPRESSION: Low probability for pulmonary embolus. Electronically signed by Bonilla Mackay 09/03/2019 8:37 PM
[2019-09-03] MEDS ORDERED: G.I. COCKTAIL PO ONE (22:23)
[2019-09-03] MEDS: COREG PO SCH (22:43)
[2019-09-03] MEDS: APRESOLINE PO SCH (22:44)
[2019-09-03 23:15] LABS: ALB/GLOB RATIO 1.5; ALBUMIN 2.9 g/dL (3.5-5.0); DIRECT BILIRUBIN 0.3 mg/dL (0.00-0.20); TOTAL BILIRUBIN 0.66 mg/dL (0.20-1.00); TOTAL PROTEIN 4.9 g/dL (6.3-8.3)
[2019-09-04] MEDS: DUONEB (A & A) INH SCH ×4 (04:05→21:11)
[2019-09-04] MEDS ORDERED: ZYRTEC PO PRN (06:26)
[2019-09-04] MEDS ORDERED: NORCO-5 PO PRN (06:26)
--- NOTE | 2019-09-04 07:04 | EKG Report ---
Test Performed on : 09/04/2019 06:46:47 AM Test Reason : CHF Exacerbation Blood Pressure : / mmHG Vent. Rate : 074 BPM Atrial Rate : 074 BPM P-R Int : 146 ms QRS Dur : 084 ms QT Int : 412 ms P-R-T Axes : 060 055 062 degrees QTc Int : 457 ms Normal sinus rhythm. Nonspecific T wave abnormality Abnormal ECG When compared with ECG of 03-SEP-2019 14:42, (Unconfirmed) Nonspecific T wave abnormality, improved in Lateral leads Confirmed by Donald DOWNEY, Francois Khan ([id number]) on 09/09/2019 9:24:29 AM
[2019-09-04 07:19] LABS: BASO# 0.03 X1000 (0.0-0.2); BASO% 0.4 % (0.0-0.8); EOS# 0.08 X1000 (0.0-0.7); HEMATOCRIT 25.7 % (37.0-47.0); HEMOGLOBIN 7.9 g/dL (12.0-16.0); IMM GRAN# 0.03 X1000 (0.0-0.04); IMM GRAN% 0.4 % (0.0-0.5); LYMPH% 8.8 % (20.5-51.1); MCH 32.4 PG (27-31); MCHC 30.7 g/dL (33-37); MCV 105.3 FL (81-99); MONO# 0.18 X1000 (0.11-0.59); MONO% 2.3 % (1.7-9.3); NEUT# 6.96 X1000 (1.4-6.5); NEUT% 87.1 % (42.2-75.2); PLT 136 X1000 (130-400); RBC 2.44 XMIL (4.2-5.4); WBC 7.98 X1000 (4.8-10.8)
[2019-09-04 07:26] LABS: ALBUMIN 2.5 g/dL (3.5-5.0); CALCIUM 7.8 mg/dL (8.8-10.2); CREATININE 1.6 mg/dL (0.5-0.9); MAGNESIUM 1.9 mg/dL (1.5-2.7); POTASSIUM 4.6 mmol/L (3.5-5.1); TOTAL BILIRUBIN 0.45 mg/dL (0.20-1.00); TOTAL PROTEIN 4.9 g/dL (6.3-8.3)
[2019-09-04 07:29] LABS: INR 1.17; PROTIME 15.1 Seconds (11.0-16.0)
[2019-09-04 07:37] LABS: PTT 36.9 Seconds (22.3-41.8)
[2019-09-04] MEDS ORDERED: ELIQUIS PO SCH (09:00)
[2019-09-04] MEDS ORDERED: CLEOCIN PO SCH (09:00)
[2019-09-04 09:12] LABS: IRON SATURATION 31 %; TIBC 121 ug/dL; TOTAL IRON 37 ug/dL (49-151); UNBOUND IRON 84 ug/dL (112-346)
[2019-09-04 10:05] LABS: FERRITIN 2050 ng/mL (13-150)
[2019-09-04] MEDS: COREG PO SCH ×2 (10:18→20:49)
[2019-09-04] MEDS: DOXYCYCLINE PO SCH ×2 (10:19→20:49)
[2019-09-04] MEDS: ZOLOFT PO SCH (10:19)
[2019-09-04] MEDS: APRESOLINE PO SCH ×2 (10:19→20:49)
[2019-09-04] MEDS: ROCEPHIN 1 GM in NS 50 ML IV SCH (10:19)
[2019-09-04] MEDS: PRILOSEC PO SCH (10:19)
[2019-09-04] MEDS: LASIX IV SCH ×2 (10:19→20:50)
--- NOTE | 2019-09-04 11:32 | HISTORY AND PHYSICAL ---
PRIMARY CARE PROVIDER: Dr. Blank Lucas. ONCOLOGIST: Dr. Welch at [facility] in [place]. CHIEF COMPLAINT: Shortness of breath. HISTORY OF PRESENT ILLNESS: Ms. Pam Rangel is a 69-year-old female who is currently undergoing chemotherapy treatment for metastatic pancreatic cancer reportedly to liver and right lung. The patient states that she did receive her chemotherapy treatment last approximately 5 days ago. She states that she has been doing chemo treatments every other week for 6 weeks now. The patient also was just recently admitted on 07/08, and discharged on 07/12 from our facility. During this admission, she was treated for left lingular pneumonia, left internal jugular thrombosis, COPD and chronic renal failure. The patient states that for the last couple of weeks that she has had worsening shortness of breath. She states that initially this was with moderate exertion though now even just the slightest exertion causes her to become short of breath. She denies any shortness of breath at rest. Though even while lying in the bed in the ER, having the patient roll from side to side to listen to her lung sounds, she became dyspneic and tachypneic. She denies the use of any home oxygen. She also reports that she has had a productive cough with white to pale yellow tinged sputum that is thick though she denies any fever, body aches, or chills. The patient also reports that she has been weak and fatigued. She is reporting some right chest, right side pain like in the right breast and just inferior to her right axillary area. The patient states that she fell a couple of days ago hitting her side. She states since that since that time that she has been having pain in the right chest and right side area with movement and cough. This area is painful and tender to touch. Though upon examination, she did not have any ecchymosis or deformity noted. There was no crepitus either. She also reports that she has been having some left mid abdominal pain. She denies any nausea or vomiting. She is reporting diarrhea though she states that this is the usual for her. She states that usually a few to several days after her chemotherapy she will develop diarrhea though she has been reporting some bright red blood in her stools. She denies any dysuria or urinary frequency. The patient does report some swelling and erythema to her left upper extremity though she has had a recent diagnosis of a left internal jugular vein thrombus, and reportedly a left upper extremity DVT and recent diagnosis of cellulitis in her arm as well. She states that her left leg is normally more swollen than the right which it is at this time. The patient states this is not a new onset that she does have some trace edema in the right leg, and does have pitting edema in her left leg. The patient states that she was out of her Eliquis for approximately 5 days. She was awaiting some samples from the physician, and did have difficulty obtaining these. The patient also reports that she thinks she may have a gastric ulcer. She has been very sensitive to spicy foods lately though she denies any previous knowledge of having a history of gastrointestinal bleeding. Upon evaluation in the ER, she was noted to be slightly hypoxic on room air with oxygen saturations in the 90 to 92% range. Though, with placement of a nasal cannula her oxygen saturation did improve greatly. The patient at the time of my examination except for when she exerts herself was not in any respiratory distress, she was not dyspneic or tachypneic. Though, it was noted in the ER note that upon the patient's initial arrival that the patient was speaking in 3 to 4 word sentences. She states that exertion makes her shortness of breath worse. Though she did not have any leukocytosis. White blood cell count was 10,790. The patient did state that recently her white blood cell count had been low, and she did receive medication of Granulex. her hemoglobin, hematocrit were both a little low at 8 and 27. Arterial blood gases revealed a slightly low PO2 of 39. The duct oxygen saturation was 94.4. This is on room air. She has been placed on nasal cannula since this time. She does have chronic kidney disease. At this time, her creatinine is the best it has been in the long time. It was 1.85. The GFR 34. In though, troponin is slightly elevated at 0.019 with a repeat of 0.021. CK totals are within normal limits. This could be related secondary to her kidney disease[place] [address]. Chest x-ray showed small left pleural effusion and bibasilar atelectasis and possibly underlying infiltrates. In the ER, the patient was given Lasix, DuoNeb treatment, her Lasix and DuoNeb treatment and she states since that time, she does feel much better. The patient also has been has been reporting some story she has report. The patient is reporting some exertional dyspnea. She is not reporting she denies any orthopnea or proximal nocturnal dyspnea. Though does have possibly some slight JVD and does have some trace edema in right lower extremity and 1+ pitting edema noted in the left lower extremity. She reports some early satiety as well. Other than the pain in her right chest, right rib area which she states started after her fall. She denies any chest pain at this time. The patient will be admitted for further treatment and evaluation. REVIEW OF SYSTEMS: A 14 point review of systems was conducted with the patient. All were negative except for pertinent positives mentioned in the HPI. PAST MEDICAL HISTORY: 1. COPD. 2. Chronic kidney disease, previously requiring dialysis. 3. Diabetes mellitus type 2. 4. Gastroesophageal reflux disease. 5. Hypertension. 6. History of shingles. 7. History of posterior reversible encephalopathy syndrome. 8. Coronary artery disease. 9. Metastatic pancreatic cancer with metastases to liver and right lung. 10. Nicotine dependence. 11. 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 Also, the patient also reports that she has been told she has a left upper extremity DVT as well. She is currently being treated with Eliquis for this. 12. Recent diagnosis of left upper extremity cellulitis. The patient is currently being treated with clindamycin for this. She does have 2 days worth of doses left. PAST SURGICAL HISTORY: 1. Cholecystectomy. 2. Hysterectomy. 3. Left subclavian port. 4. Left bilateral cataract surgery. 5. Sternal catheter placement. 6. AV graft. SOCIAL HISTORY: The patient is a half a pack per day smoker, and has smoked since she was 16. There was no other alcohol or illicit drug use. She does use the ambulatory assistance of a walker. The patient does live at home with her 87-year-old mother. She states that one of her brothers is helping to take care of her mother while she is admitted at this time. FAMILY HISTORY: Her mother is still alive. She does have a history of chronic kidney disease, hypertension, and diabetes. ALLERGIES: Patient has allergies to Darvocet, Cipro, and Talwin. HOME MEDICATIONS: 1. Xanax 0.25 mg p.o. at bedtime. 2. Eliquis 2.5 mg p.o. b.i.d. 3. Coreg 25 mg p.o. b.i.d. 4. Zyrtec 10 mg p.o. daily. 5. Clindamycin 300 mg p.o. b.i.d. 6. Lasix 40 mg p.o. daily. 7. Hydrocodone acetaminophen 5 mg 1 tablet p.o. t.i.d. p.r.n. for pain. 8. Lantus 10 units subcutaneously every morning. 9. Remeron 7.5 mg p.o. at bedtime. 10. Omeprazole 20 mg p.o. daily. 11. Zoloft 50 mg p.o. daily. DIAGNOSTIC DATA: White blood cell count 47003, hemoglobin 8.6, hematocrit 27.8, and platelet count is 171,000. PT 14.5, INR 1.1, PTT 122.8. Sodium 142, potassium 4.6, chloride 111, serum bicarbonate 19, BUN 30, creatinine 1.5 with a GFR 34, glucose 116, calcium 8, and magnesium is 2. Direct bilirubin is 0.3, AST 38, ALT 37, and alkaline phosphatase is 188. CK 27. Troponin is 0.019. Arterial blood gases were obtained on room air with pH 7.4, pCO2 34, PO2 of 59, HC03 22.3 with a base excess of -3.2, oxyhemoglobin was 89.2, O2 saturation was 94.4, and carboxyhemoglobin was 4.4. These were drawn on room air. EKG showed normal sinus rhythm with a nonspecific ST and T-wave abnormality with a rate of 74 with a QTc of 437. Chest x-ray showed development of a small left effusion with bibasilar atelectasis and possibly underlying infiltrates. V/Q lung scan showed low probability for pulmonary embolus. PHYSICAL EXAMINATION: VITAL SIGNS: Temperature 98.1 degrees, heart rate 71, respirations 16, blood pressure 183/82, and oxygen saturation is 99% on nasal cannula at 2 L. GENERAL: Ms. Rangel is a very pleasant, 69-year-old, female. She was resting on the ER stretcher. She is in no acute distress. She was awake, alert, and able to answer questions appropriately. HEENT: Head is atraumatic, normocephalic. Pupils are equal, round, and reactive to light, were 3 mm bilaterally and brisk. Oral mucosa is moist. NECK: Supple. Trachea midline. There was a some slight JVD noted upon examination. CARDIOVASCULAR: Patient has S1-S2 present. No murmurs, gallops, or rubs appreciated with a regular rate and rhythm. PULMONARY: Patient has symmetrical chest expansion bilaterally. She does have some rhonchi and expiratory wheezing noted scattered throughout full lung brown. She does have some crackles noted in bilateral bases. ABDOMEN: Soft, is nontender to palpation though does appear to maybe be slightly distended. Bowel sounds are present in all 4 quadrants, and were normoactive. EXTREMITIES: No cyanosis noted. The patient does have swelling noted to her left upper extremity though she had had recent cellulitis and reportedly a DVT with left occlusive internal jugular vein thrombus. She also reports some chronic swelling to her left leg which she state is always more swollen than her right. The right leg does have some possible trace edema. The left leg does have 1 to 2+ edema. Pulse, motor and sensory is intact in all extremities. Radial and pedal pulses are 2+ bilaterally. INTEGUMENTARY: Patient's skin is pink, warm, dry. NEUROLOGICAL: Patient is alert and oriented to person, place, time, and situation. She is able to move all extremities. There were no focal neurological deficits noted. ASSESSMENT AND PLAN: 1. Acute hypoxic respiratory failure and exertional dyspnea. Differential diagnosis include COPD, pneumonia, PE, and possible CHF exacerbation. The patient has been afebrile. She has no leukocytosis noted. She is not reporting any fever, body aches, or chills at this time. Though she does have a history of COPD, I do not feel like her symptoms are related to this. We did send her for a V/Q scan for rule out of pulmonary embolism which did show a low probability for pulmonary embolus. 2. Congestive heart failure exacerbation. Given her reported increasing worsening dyspnea, her slight JVD, crackles in bilateral bases as well as her elevated D-dimer, we do feel like this is one of the most likely causes. We have placed orders for a series of cardiac enzymes, repeat EKG in the morning, and echocardiogram. We will continue with aggressive pulmonary toilet with incentive spirometry, scheduled DuoNeb treatments, and frequent turning, cough and deep breathing. She did get Lasix in the ER IV. We will continue this with 20 mg IV q.12 hours. We will do strict intake and output, and daily weights. We have placed a consult with Dr. Falcon with cardiology. We will await their evaluation and further recommendations for management. 3. Chronic kidney disease. Actually, her creatinine at this time is 1.5. This is the best it has been in quite some time. We will continue to monitor this. We will avoid nephrotoxic medications and renally dose medicines as necessary. 4. Metastatic pancreatic cancer with metastasis reported to be to the liver and right lung. She is followed by Dr. Welch at [facility] in [place]. She is receiving active chemo with her last treatment approximately 5 days ago. She also reportedly states recently she did have to receive Granulex. 5. Diarrhea. The patient states this is chronic. She normally has this when she has chemo. Though she had recently been on clindamycin for a left upper extremity cellulitis. Given this, we did perform stool studies, though her C diff toxin was negative. 6. Anemia. This has worsened since her last admission. We are obtaining an anemia profile. I did recheck her labs this morning, and her hemoglobin and hematocrit had dropped even further. I did contact Dr. Hernandez who was on-call for Dr. Lucas, and did notify him of this. I did tell him that I was going to go ahead and hold her Eliquis for this morning given this drop until he was able to evaluate her further. We will await Dr. Hernandez's evaluation and further recommendations for management. 7. Recent left occlusive internal jugular vein thrombosis with chronically occluded brachial AV graft. The patient also reports she has a left upper extremity DVT as well. The patient was receiving Eliquis for this though given the above anemia, we have held this at this time. 8. Recent diagnosis of a left upper extremity cellulitis. The patient has 2 more days of this antibiotic left. We will continue this. 9. Hypertension. We will continue her daily prescribed medicines. 10. Recent reported fall a few days ago for which she states she hit her right chest and right side, and is having pain and tenderness in this area. She did receive a chest x-ray though did not mention any rib fractures. We will go ahead and order rib detail to rule out any further rib fractures or injury. The patient has been placed on the medical floor of telemetry. She will have vital signs q.4 hours. We will repeat labs in the morning as well as a series of cardiac enzymes. We are awaiting stool studies as well. Further orders and recommendations pending hospital course, diagnostic studies, and physician evaluation. Dictated by VEDA Mendes for Carlos Talamantes MD cc: MD Tyree Burks MD MTDD
[2019-09-04] MEDS: HUMULIN R SUBQ SCH ×3 (12:00→20:50)
--- NOTE | 2019-09-04 12:11 | CARDIOLOGY CONSULTATION ---
DATE: 09/04/2019 CHIEF COMPLAINT ON PRESENTATION: Shortness of breath and chest pain. HISTORY OF PRESENT ILLNESS: Ms. Rangel is a 69-year-old, white female with a history of stage IV pancreatic cancer. She normally follows with Dr. Reynaga in [place]. She has a history of coronary artery disease as well as diabetes. She has been experiencing shortness of breath that has been going on for a week or more. It has been progressively worsened, occurring with minimal activity. She denies any orthopnea. She reported some episodic chest pain that was occurring yesterday on the right side. This was tender to palpation of that area and she thinks it may be secondary due to some trauma that she experienced to the right chest that occurred with a fall around 1 week ago. She recently had a diagnosis of a left upper extremity DVT and has been placed on Eliquis. She had been off of this medication for a few days secondary to running out. She reports compliance with her chemotherapy regimen. Last treatment was around 1 week ago. She has had no recent fevers but has had some cough productive of clear to whitish sputum. PAST MEDICAL HISTORY: Significant for: 1. Stage IV pancreatic cancer, followed by a [facility] in [place]. 2. Coronary artery disease with last cardiac catheterization performed in November of 2013. This demonstrated that left main had mild calcifications but no significant disease. Left anterior descending had a mid 40% lesion. Ramus occluded, filling faintly via [id number] collaterals. It was a small vessel. The circumflex was large and nondominant, mild rule luminal irregularities. Right coronary artery was codominant, essentially normal. That episode occurred in the setting of a non Q-wave HI. She was treated medically. Her last echocardiogram showed a preserved EF of 55% in February of 2018. Last stress test was in November of 2017 that demonstrated a preserved ejection fraction of 73% with normal uptake. 3. Hypertension. 4. Diabetes. 5. Hyperlipidemia. 6. History of chronic kidney disease with previous dialysis but not currently requiring. 7. Left upper extremity DVT. SOCIAL HISTORY: She smokes less than a pack a day. She has no current alcohol use. FAMILY HISTORY: Significant for hypertension. REVIEW OF SYSTEMS: A 10 system review of systems is negative except for those things mentioned in the HPI. PHYSICAL EXAMINATION: She is afebrile. Her heart rate is 72, blood pressure 148/67. Notably, her presenting blood pressure yesterday was 206/83. General: She is in no acute distress. She is ill-appearing. HEENT: Oropharynx is moist. Poor dentition. Eye examination shows pink conjunctivae and white sclerae. Neck Examination: Shows no obvious thyromegaly or thyroid tenderness. Cardiovascular: She sounds to be in a regular rate and rhythm. I do not hear any obvious murmurs. She has no S3. She has 1+ bilateral lower extremity edema as well as 1 to 2+ left upper extremity edema. Chest Examination: Has rales somewhat diffusely. She has no increased work of breathing. She is lying flat. Abdomen: Soft, nontender. Skin Examination: Warm and dry throughout, without any rashes. Neurological: She is nonfocal, moving all extremities well. Her right upper chest had some mild tenderness to palpation in the mid area with no external signs of trauma. She has a left upper chest access port. PERTINENT DATA: Her chest x-ray shows a small left effusion, possible underlying infiltrates. She had a V/Q scan that was low probability for PE. She had an EKG on the at 14:42 that showed sinus rhythm, no ischemic changes. Subsequent EKG on the at 6:46, sinus rhythm, no ischemic changes. White count 7.9, hematocrit 25.7, platelet count 136,000. INR 1.17. Sodium 144, potassium is 4.6, BUN 29, creatinine is 1.6 which actually appears better than most creatinines on file. ProBNP 11,000 yesterday. Cardiac enzymes are negative times multiple sets. ASSESSMENT: Ms. Rangel is a 69-year-old female with a history of coronary artery disease and stage IV pancreatic cancer who presents short of breath with edema and a markedly elevated proBNP. PLAN: I agree with continued diuresis. Her antihypertensives have been reinitiated. An echocardiogram will be checked in the morning. Her apixaban is being held secondary to her anemia. We will continue to follow. cc: MD Tyree Dias MD
--- NOTE | 2019-09-04 13:29 | ECHO REPORT ---
ORDER DATE: 09/04/2019 INDICATIONS: CHF, metastatic pancreatic cancer. FINDINGS: 1. The right atrium appears normal in size at 3.4 cm. 2. Trace tricuspid regurgitation. 3. Insufficient data to accurately estimate the RV systolic pressure. 4. Normal RV size and systolic function. 5. No significant pulmonic insufficiency. 6. Normal left atrial size at 2.2 cm. 7. No mitral valve prolapse. Mild mitral regurgitation. No evidence of mitral stenosis. 8. Normal LV size, end-diastolic dimension of 4.4 cm. Normal wall thicknesses with a posterior and interventricular septal wall thickness of 1.0 cm each. Normal LV systolic function with an estimated EF of 60% to 65%. 9. The aortic valve opens well. No evidence of stenosis or insufficiency. 10. The aorta appears normal on visualized segments. 11. No pericardial effusion seen. 12. The IVC appears to be normal in size with good collapse on inhalation. cc: MD Tyree Dias MD
[2019-09-04] MEDS: REMERON PO SCH (20:50)
[2019-09-04] MEDS: XANAX PO PRN (20:55)
--- NOTE | 2019-09-04 22:04 | Diag Imaging Result Doc PS360 ---
EXAM: CHEST-PORTABLE HISTORY: Pneumonia TECHNIQUE: Single view COMPARISON: 09/03/2019 FINDINGS: There are small pleural effusions on the current exam with basilar infiltrates and atelectasis. These are slightly more prominent than on the prior study. No cardiomegaly. No change in the left subclavian portacatheter. Questionable tiny left apical pneumothorax. IMPRESSION: 1.Mild worsening in the basilar infiltrates, atelectasis and small effusions 2.Questionable tiny left apical pneumothorax Electronically signed by Bonilla Mackay 09/04/2019 10:01 PM
--- NOTE | 2019-09-04 22:09 | Diag Imaging Result Doc PS360 ---
EXAM: RIBS ONLY RIGHT HISTORY: Recent fall w/ injury/tenderness/pain to R chest TECHNIQUE: Two views COMPARISON: None. FINDINGS: There is a small right pleural effusion with basilar atelectasis. No pneumothorax. No displaced fracture identified. IMPRESSION: Small right pleural effusion with basilar atelectasis Electronically signed by Bonilla Mackay 09/04/2019 10:06 PM
[2019-09-05] MEDS: DUONEB (A & A) INH SCH ×4 (03:19→22:55)
[2019-09-05] MEDS: PRILOSEC PO SCH (06:37)
[2019-09-05] MEDS: HUMULIN R SUBQ SCH ×4 (06:37→21:32)
[2019-09-05] MEDS: DOXYCYCLINE PO SCH ×2 (10:48→21:31)
[2019-09-05] MEDS: APRESOLINE PO SCH ×2 (10:48→21:31)
[2019-09-05] MEDS: LASIX IV SCH ×2 (10:48→21:31)
[2019-09-05] MEDS: ROCEPHIN 1 GM in NS 50 ML IV SCH (10:48)
[2019-09-05] MEDS: ZOLOFT PO SCH (10:48)
[2019-09-05] MEDS: COREG PO SCH ×2 (10:48→21:31)
[2019-09-05 13:13] LABS: BASO# 0.07 X1000 (0.0-0.2); BASO% 1.6 % (0.0-0.8); EOS# 0.07 X1000 (0.0-0.7); EOS% 1.6 % (0.0-10.0); HEMATOCRIT 25.8 % (37.0-47.0); IMM GRAN# 0.06 X1000 (0.0-0.04); IMM GRAN% 1.4 % (0.0-0.5); LYMPH% 18.4 % (20.5-51.1); MCH 33.1 PG (27-31); MCV 106.6 FL (81-99); MONO# 0.22 X1000 (0.11-0.59); MONO% 5.1 % (1.7-9.3); MPV 10.5 FL (7.4-10.4); NEUT# 3.12 X1000 (1.4-6.5); NEUT% 71.9 % (42.2-75.2); PLT 139 X1000 (130-400); RBC 2.42 XMIL (4.2-5.4); WBC 4.34 X1000 (4.8-10.8)
[2019-09-05] MEDS ORDERED: NS 500 ML IV ONE (14:00)
[2019-09-05] MEDS ORDERED: LASIX IV ONE (14:10)
[2019-09-05] MEDS ORDERED: NS 500 ML ONE (18:08)
--- NOTE | 2019-09-05 18:58 | CARDIOLOGY PROGRESS NOTE ---
DATE: 09/05/2019 SUBJECTIVE: Ms. Rangel reports she is breathing better today. She has been diuresing. PHYSICAL EXAMINATION: Vital Signs: She is afebrile. Heart rate 80. Blood pressure 176/67, although her systolics have been ranging anywhere from the 130s to 170s. General: No acute distress. Cardiovascular: She sounds to be in a regular rate and rhythm. She has no murmurs. She has no S3. Trace bilateral lower extremity edema. Chest: Exam has coarse breath sounds diffusely. No increased work of breathing. Abdomen: Soft, nontender. PERTINENT DATA: No new labs today. ASSESSMENT: Ms. Rangel is a 69-year-old female who presented with shortness of breath. PLAN: Her ejection fraction was normal by echocardiogram. I agree with continued diuresis. I have added in a low dose of amlodipine to try to control her blood pressure better. Continuing on Lasix as dosed. cc: MD Tyree Dias MD
--- NOTE | 2019-09-05 19:28 | HEMO/ONC CONSULTATION ---
DATE: 09/05/2019 REQUESTING PHYSICIAN: Hospitalist service. REASON FOR CONSULTATION: Patient known to Dr. Welch; metastatic pancreatic cancer. HISTORY OF PRESENT ILLNESS: Ms. Rangel is a 69-year-old female who is known to our practice, as she is currently under the care of Dr. Welch over at the [facility]. The patient has metastatic pancreatic cancer and is currently receiving FOLFIRINOX, status post cycle #4 on 08/29/2019. The patient presented to [facility] complaining of increased shortness of breath. She was found to have some hypoxia that was concerning for pneumonia versus acute PTE. She also was felt to possibly have CHF exacerbation. She has now been admitted to the hospital for further evaluation and treatment. PAST MEDICAL HISTORY: 1. COPD. 2. Diabetes mellitus type 2. 3. Congestive heart failure. 4. Chronic kidney disease. 5. GERD. 6. Hypertension. 7. Metastatic pancreatic cancer, currently receiving chemotherapy, with her last dose of chemotherapy on 08/29/2019. 8. Recent diagnosis of a left occlusive internal jugular vein thrombosis, with a chronically occluded brachial AV graft. Currently on Eliquis. 9. Upper extremity cellulitis. PAST SURGICAL HISTORY: 1. Cholecystectomy. 2. Hysterectomy. 3. Left subclavian port placement. 4. Left bilateral cataract removal. 5. Sternal catheter placement. 6. AV graft. SOCIAL HISTORY: The patient is a [id number]-a-day smoker since the age of 16. She denies any alcohol or illicit drug use. She lives at home with her 87-year-old mother. FAMILY HISTORY: Positive for chronic kidney disease, hypertension and diabetes. REVIEW OF SYSTEMS: Twelve-point review of systems has been completed and is negative except for as expressed in HPI. PHYSICAL EXAMINATION: Vital Signs: Temperature 98.4 degrees, heart rate 80, respirations 14, blood pressure 176/67, O2 saturation 97% on room air. General: This is a female lying in her hospital bed. She is in no acute distress. There is no one at bedside. Head normocephalic, atraumatic. Eyes: Pupils equal, round and reactive. Ears, nose, throat, neck and mouth: Oral mucosa is normal. Gross auditory acuity is intact. Cardiovascular: S1, S2 heard. Respiratory: Coarse breath sounds. No wheezing, rhonchi or rales noted. Gastrointestinal: Abdomen is soft, with normoactive bowel sounds noted. Nontender. Musculoskeletal: No obvious bony abnormalities. Extremities: She does have bilateral lower extremity edema noted. She also has left upper extremity edema as well. Neurologic: The patient is alert and oriented, with no focal motor deficits noted. LABORATORY DATA: White blood cells today are 4.34, hemoglobin 8.0, platelet count 139,000. DIAGNOSTIC DATA: Lung scan V/Q shows low probability of PTE. Chest x-ray shows basilar infiltrates, atelectasis and small effusions. ASSESSMENT AND PLAN: 1. Metastatic pancreatic cancer. The patient is currently receiving chemotherapy. Her last dose of FOLFIRINOX was on 08/29/2019. She is status post now 4 complete cycles of treatment. Her treatment will be on hold while she is here in the hospital. We will have her discharged and re-evaluate as an outpatient with Dr. Welch prior to starting any further treatment. 2. Hypoxia related to pneumonia versus congestive heart failure exacerbation. The patient is on antibiotics per the primary team. She also is being evaluated by Cardiology. Continue management per both parties. 3. Left upper extremity deep venous thrombosis, recent diagnosis. Agree with anticoagulation while she is here in the hospital. 4. Chronic kidney disease. Monitor her CMP closely. Avoid nephrotoxic medications. 5. Anemia. She is status post chemotherapy and does have metastatic cancer. Monitor closely and transfuse as needed. 6. Diarrhea. We have already done some stool studies that seem like they are all negative. We want to thank you for consulting us on Ms. Rangel. We will continue to follow along and adjust our treatment plan per her hospital course. Dictated by RAINA Hudson for Joyce Larry MD cc: MD Tyree Vega MD I have seen and examined the patient. The above note reflects my history, physical exam, assessment and plan Joyce SHEEHAN
--- NOTE | 2019-09-05 20:32 | PROGRESS NOTE ---
DATE: 09/05/2019 SUBJECTIVE: A 69-year-old white female admitted to the hospital with shortness of breath. She is also anemic. I appreciated consultants. PAST MEDICAL HISTORY: Reviewed. PAST SURGICAL HISTORY: Reviewed. MEDICINES: Reviewed. ALLERGIES: Reviewed. PHYSICAL EXAMINATION: Vital signs: Temperature is 98 degrees. Pulse 78. Vitals are stable. HEENT: Left arm swelled up. Stopped taking Eliquis. Chest: Bilateral air entry. Heart: Sounds are regular. Abdomen: Belly is soft, nontender. Neurologic: No obvious deficits. INVESTIGATIONS: White cell count 4.3, hematocrit 25, platelets 139,000. Sodium 144, potassium 4.6, BUN 29, creatinine 1.6. Stool for occult blood was negative. Stool for cultures were negative. ASSESSMENT AND PLAN: 1. Shortness of breath. We will check the proBNP and also check the echocardiography, which was done yesterday. 2. Hypertension, well controlled. 3. Diabetes, stable. 4. Stage III metastatic pancreatic cancer, under the care of oncologist, on chemotherapy. 5. Deep venous thrombosis in the left subclavian and internal jugular thrombosis. We will start on Eliquis. 6. Chronic kidney disease, stable. 7. Anemia due to chronic disease. Will transfuse a unit of packed red blood cells and will follow up. LEVEL OF DOCUMENTATION: 25 minutes. cc: Tyree Lucas MD
[2019-09-05] MEDS: XANAX PO PRN (21:31)
[2019-09-05] MEDS: REMERON PO SCH (21:31)
[2019-09-06] MEDS: DUONEB (A & A) INH SCH ×4 (03:40→23:25)
[2019-09-06] MEDS: PRILOSEC PO SCH (06:31)
[2019-09-06] MEDS: HUMULIN R SUBQ SCH ×4 (06:31→21:41)
[2019-09-06] MEDS ORDERED: NORVASC PO SCH (09:00)
[2019-09-06] MEDS: COREG PO SCH ×2 (09:21→21:40)
[2019-09-06] MEDS: DOXYCYCLINE PO SCH ×2 (09:21→21:40)
[2019-09-06] MEDS: ZOLOFT PO SCH (09:21)
[2019-09-06] MEDS: LASIX IV SCH ×2 (09:21→21:43)
[2019-09-06] MEDS: ROCEPHIN 1 GM in NS 50 ML IV SCH (09:21)
[2019-09-06] MEDS: APRESOLINE PO SCH ×2 (09:21→19:01)
[2019-09-06 10:51] LABS: INR 1.1; PROTIME 14.4 Seconds (11.0-16.0)
[2019-09-06 11:25] LABS: ALB/GLOB RATIO 1.1; ALBUMIN 2.7 g/dL (3.5-5.0); CALCIUM 8.3 mg/dL (8.8-10.2); CREATININE 1.8 mg/dL (0.5-0.9); MAGNESIUM 1.7 mg/dL (1.5-2.7); POTASSIUM 4.6 mmol/L (3.5-5.1); TOTAL BILIRUBIN 0.49 mg/dL (0.20-1.00); TOTAL PROTEIN 5.2 g/dL (6.3-8.3)
[2019-09-06] MEDS ORDERED: NS 250 ML ONE (12:40)
[2019-09-06] MEDS ORDERED: MAGNESIUM SULFATE 2 GM/S.W.I. 2 GM/50 ML IVPB IV ONE (15:00)
--- NOTE | 2019-09-06 15:56 | CARDIOLOGY PROGRESS NOTE ---
DATE: 09/06/2019 SUBJECTIVE: She reports her breathing has improved. She has no pain complaints. OBJECTIVE: Vital Signs: Afebrile. Heart rate 71. Her blood pressure continues to be quite elevated, anywhere from the 150s to 180s systolic. General: She is in no acute distress. Cardiovascular: She sounds to be in a regular rate and rhythm. She has no murmurs. She has no S3. She has no lower extremity edema. Chest: Exam sounds relatively clear. She has no increased work of breathing. PERTINENT DATA: Her sodium is 143, potassium 4.6, BUN 29, creatinine is 1.8 which is certainly within her recent baselines. Her magnesium level is 1.7. Her proBNP is 6960, down from 11,000. ASSESSMENT: Ms. Rangel is a 69-year-old female who presents with diastolic failure. PLAN: We will continue her on IV diuretics. She reports swelling with amlodipine so I have discontinued this. Changed her hydralazine to 50 t.i.d. from b.i.d. and add in some Isosorbide dinitrate at 10 mg t.i.d. Laboratories will be checked in the morning. Her magnesium was repleted to try to get it above 2. cc: MD Tyree Dias MD
[2019-09-06] MEDS: ISORDIL PO SCH (19:01)
--- NOTE | 2019-09-06 20:02 | PROGRESS NOTE ---
DATE: 09/06/2019 SUBJECTIVE: The patient has shortness of breath, a little better. The left arm is diffusely swollen and V/Q scan is negative. REVIEW OF SYSTEMS: None reported. OBJECTIVE: Temperature is 97.6 degrees, pulse 73, blood pressure is 146/56, 100 percent.HEENT: Within normal limits. Neck: Supple. Chest: Clear. Heart sounds are regular. Belly is soft, nontender. ASSESSMENT AND PLAN: 1. Left subclavian internal jugular thrombosis due to port. Will be removed on Monday by Dr. Saenz. Discussed with him. 2. Peripherally inserted central catheter line on the right side was placed. 3. Stage IV pancreatic cancer. Recently chemotherapy on hold. 4. Chronic kidney disease. Stable. 5. Hypertension. Well controlled. 6. Diabetes. Stable. 7. Anemia of chronic disease. Given transfusion of 1 unit of packed red blood cells. Check the labs in the morning and will consult Dr. Saenz on Monday. LEVEL OF DOCUMENTATION: 25 minutes. cc: Tyree Lucas MD
[2019-09-06] MEDS: REMERON PO SCH (21:40)
[2019-09-06] MEDS: XANAX PO PRN (21:46)
[2019-09-07] MEDS: DUONEB (A & A) INH SCH ×4 (03:40→23:23)
[2019-09-07] MEDS: HUMULIN R SUBQ SCH ×5 (06:07→20:36)
[2019-09-07] MEDS: PRILOSEC PO SCH (06:19)
[2019-09-07 07:45] LABS: MCH 31.9 PG (27-31); MCHC 32.1 g/dL (33-37); MCV 99.3 FL (81-99); MPV 10.8 FL (7.4-10.4); RBC 2.82 XMIL (4.2-5.4); RDW 19.7 % (11.5-14.5); WBC 1.86 X1000 (4.8-10.8)
[2019-09-07 07:57] LABS: CALCIUM 8.3 mg/dL (8.8-10.2); POTASSIUM 4.4 mmol/L (3.5-5.1)
[2019-09-07] MEDS ORDERED: NORVASC PO SCH (09:00)
[2019-09-07] MEDS: COREG PO SCH ×2 (10:10→20:40)
[2019-09-07] MEDS: DOXYCYCLINE PO SCH ×2 (10:10→20:40)
[2019-09-07] MEDS: ISORDIL PO SCH ×3 (10:10→17:35)
[2019-09-07] MEDS: LASIX IV SCH ×2 (10:10→20:37)
[2019-09-07] MEDS: ROCEPHIN 1 GM in NS 50 ML IV SCH (10:10)
[2019-09-07] MEDS: ZOLOFT PO SCH (10:10)
[2019-09-07] MEDS: APRESOLINE PO SCH ×3 (10:10→17:35)
[2019-09-07] MEDS ORDERED: BLISTEX MEDICATED BERRY LIP BALM TOP PRN (12:11)
--- NOTE | 2019-09-07 13:54 | PROGRESS NOTE ---
DATE: 09/07/2019 SUBJECTIVE: Ms. Rangel is a 69-year-old white female. She has diastolic congestive heart failure. She is on diuretic, Isordil and hydralazine. We have increased the hydralazine dose. Her white count was 1.86, hemoglobin 9 and hematocrit 28. She has a Hematology consult. She also has electrolytes that are normal. BUN is 33, creatinine is 2.0. At present, vital signs are stable. Lungs still reveal occasional basal rales. Blood pressure was 191/83. We are going to watch her closely. -5 cc: MD Tyree Forde MD
[2019-09-07] MEDS: XANAX PO PRN (20:40)
[2019-09-07] MEDS: REMERON PO SCH (20:40)
[2019-09-08] MEDS: DUONEB (A & A) INH SCH ×4 (04:45→22:56)
[2019-09-08] MEDS: HUMULIN R SUBQ SCH ×4 (06:25→20:30)
[2019-09-08] MEDS: PRILOSEC PO SCH (06:34)
[2019-09-08 07:51] LABS: HEMATOCRIT 26.9 % (37.0-47.0); HEMOGLOBIN 8.4 g/dL (12.0-16.0); MCH 31.3 PG (27-31); MCHC 31.2 g/dL (33-37); MCV 100.4 FL (81-99); MPV 10.6 FL (7.4-10.4); RBC 2.68 XMIL (4.2-5.4); RDW 18.9 % (11.5-14.5); WBC 2.02 X1000 (4.8-10.8)
[2019-09-08 08:07] LABS: CALCIUM 8.4 mg/dL (8.8-10.2); CREATININE 2.1 mg/dL (0.5-0.9); POTASSIUM 4.2 mmol/L (3.5-5.1)
[2019-09-08] MEDS: ZOLOFT PO SCH (09:43)
[2019-09-08] MEDS: DOXYCYCLINE PO SCH ×2 (09:43→20:20)
[2019-09-08] MEDS: ROCEPHIN 1 GM in NS 50 ML IV SCH (09:43)
[2019-09-08] MEDS: APRESOLINE PO SCH ×3 (09:43→17:36)
[2019-09-08] MEDS: ISORDIL PO SCH ×3 (09:43→17:36)
[2019-09-08] MEDS: COREG PO SCH ×2 (09:43→20:20)
[2019-09-08] MEDS: LASIX IV SCH (09:43)
--- NOTE | 2019-09-08 11:22 | PROGRESS NOTE ---
DATE: 09/08/2019 LOCATION: Room 319 A. SUBJECTIVE: Ms. Rangel has metastatic pancreatic cancer, congestive heart failure, DVT of the left arm. Her vital signs are stable. Lungs sound much better. Blood pressure was 163/58. Electrolytes are normal. BUN is 36, creatinine 2.1. White cell count has gone up to 2.02, hemoglobin 8.4, hematocrit 26.9, and platelets are 127,000. There is some effect from chemotherapy on the bone marrow. -0 cc: MD Tyree Forde MD
--- NOTE | 2019-09-08 12:50 | CARDIOLOGY PROGRESS NOTE ---
DATE: 09/08/2019 SUBJECTIVE: The patient continues to report steady improvement in her breathing. OBJECTIVE: Vital Signs: She is afebrile, heart rate 71, blood pressure 168/86. Her systolics have been anywhere from the 140s to 190s recently. Her I's and O's continue to be slightly negative. General: No acute distress. Cardiovascular: She sounds to be in a regular rate and rhythm. She has no murmurs. She continues to have 1+ bilateral lower extremity edema that has improved. Warm and well-perfused extremities. Chest: Mild rales in the bilateral bases. She has no increased work of breathing. Abdomen: Soft, nontender. PERTINENT DATA: Her BUN and creatinine are 36 and 2.1, which have steadily increased from 29 and 1.6 on 09/04/2019. Potassium is 4.2, sodium 140. ASSESSMENT: Ms. Rangel is a 69-year-old female who presented with heart failure, diastolic in nature. PLAN: We will check laboratories and an x-ray in the morning. I have stopped her IV Lasix, and changed her to oral Lasix in the morning. Her BUN/creatinine ratio has increased slightly. I will increase the ISDN to try to control her blood pressure better. I believe she is approaching discharge in the next 24 to 48 hours. cc: MD Tyree Dias MD
[2019-09-08] MEDS ORDERED: TYLENOL PO PRN (17:06)
[2019-09-08] MEDS: REMERON PO SCH (20:20)
[2019-09-08] MEDS: XANAX PO PRN (20:29)
[2019-09-09] MEDS: DUONEB (A & A) INH SCH ×4 (03:44→23:25)
[2019-09-09] MEDS: HUMULIN R SUBQ SCH ×4 (06:01→22:55)
[2019-09-09] MEDS: PRILOSEC PO SCH (06:02)
--- NOTE | 2019-09-09 07:32 | Diag Imaging Result Doc PS360 ---
EXAM: CHEST-PORTABLE HISTORY: dyspnea TECHNIQUE: Single view COMPARISON: 09/04/2019 FINDINGS: No change in the left subclavian portacatheter. There is now a right-sided PICC line. This is in good position. The small bilateral pleural effusions with basilar atelectasis. The basilar markings are less prominent on the current exam. No cardiomegaly. No pulmonary edema. IMPRESSION: Mild interval improvement. Electronically signed by Bonilla Mackay 09/09/2019 7:30 AM
[2019-09-09 08:17] LABS: HEMATOCRIT 29.2 % (37.0-47.0); HEMOGLOBIN 9.3 g/dL (12.0-16.0); MCH 32.2 PG (27-31); MCHC 31.8 g/dL (33-37); MPV 10.9 FL (7.4-10.4); RBC 2.89 XMIL (4.2-5.4); RDW 18.7 % (11.5-14.5); WBC 2.82 X1000 (4.8-10.8)
[2019-09-09 08:30] LABS: CALCIUM 8.4 mg/dL (8.8-10.2); POTASSIUM 4.2 mmol/L (3.5-5.1)
[2019-09-09] MEDS: ROCEPHIN 1 GM in NS 50 ML IV SCH (09:04)
[2019-09-09] MEDS: ZOLOFT PO SCH (09:05)
[2019-09-09] MEDS: LASIX PO SCH ×2 (09:05→20:54)
[2019-09-09] MEDS: DOXYCYCLINE PO SCH ×2 (09:05→20:54)
[2019-09-09] MEDS: ISORDIL PO SCH ×3 (09:05→17:18)
[2019-09-09] MEDS: COREG PO SCH ×2 (09:06→20:54)
[2019-09-09] MEDS: APRESOLINE PO SCH ×3 (09:06→17:18)
--- NOTE | 2019-09-09 11:01 | GENERAL SURGERY CONSULTATION ---
DATE: 09/09/2019 REQUESTING PHYSICIAN: Dr. Lucas CONSULT CONCERNING: Upper extremity DVT. HISTORY OF PRESENT ILLNESS: A 69-year-old female with metastatic pancreatic cancer who I have known and followed. I previously placed a graft in her left upper extremity and have done dialysis access on her. She is coming in with progressive shortness of breath and chest pain. She has been known to have a DVT in her subclavian and jugular vein on the left side associated with the port. They have been treating with Eliquis. There was some concern she might have had a PE, but the lung V/Q scan did not seem to suggest that. She still had a DVT that is present on repeat ultrasound, and it does not seem like it has decreased in size. She also has a clotted off graft. I was asked to potentially discuss removal of the port. She had a PICC line placed in the right arm that she can get potential chemotherapy. Her main issue is swelling in her arm. PAST MEDICAL HISTORY: Includes COPD, diabetes mellitus, congestive heart failure, chronic kidney disease, gastroesophageal reflux disease, hypertension, metastatic pancreatic cancer, left upper extremity and internal jugular vein thrombus. PAST SURGICAL HISTORY: Includes cholecystectomy, hysterectomy, left subclavian port, bilateral cataract surgery, AV graft, previous tunneled catheter placement and removal. SOCIAL HISTORY: Current smoker. FAMILY HISTORY: Positive for chronic kidney disease, hypertension, diabetes. ALLERGIES: Reviewed. HOME MEDICATIONS: In the MAR and reviewed. Of note, she is holding her Eliquis. REVIEW OF SYSTEMS: Full 14 systems reviewed and negative except as specified in HPI. PHYSICAL EXAMINATION: Vital Signs: Patient is currently afebrile. Her vital signs are stable. General: No acute distress, but chronically ill female, looks older than her stated age. HEENT: Normocephalic, atraumatic. Pupils equal, round, reactive to light. Mucous membranes moist. Oropharynx benign. Neck: Supple. Trachea midline. Cardiovascular: Regular rate and rhythm. Lungs: Grossly clear. Abdomen: Soft, nontender, nondistended. Extremities: Some swelling noted in the left upper extremity. No signs of phlegmasia. Vascular: All extremities perfused. Neurologic: Grossly intact. Skin: No signs of jaundice. LABORATORY: White blood count is 2, hematocrit 29. Remainder of labs reviewed. IMAGING: Reviewed. ASSESSMENT AND PLAN: A 69-year-old female with left upper extremity deep vein thrombosis and internal jugular vein deep vein thrombosis associated with catheter in the subclavian. Deep vein thrombosis: At this time, deep vein thrombosis is likely related to both hypercoagulable state from her cancer and the presence of the catheter. I discussed with her possible removal of the catheter. Discussed with her the risks, benefits, alternatives. I did discuss the removal of the catheter might expedite the clot dissolving, but did discuss that it could cause the clot to propagate to her lungs. She is mostly concerned about her swelling in her arm, which is likely associated with the occluded arteriovenous graft. Removal of the port would probably not solve that issue at this moment. After discussing with her, she wants to think about it. I updated Dr. Lucas. I could potentially remove the catheter tomorrow if she wants me to. cc: MD Tyree Toribio MD
[2019-09-09] MEDS ORDERED: MAGNESIUM SULFATE 2 GM/S.W.I. 2 GM/50 ML IVPB IV ONE (12:00)
--- NOTE | 2019-09-09 15:32 | Extremity Venous Study ---
PROCEDURE NAME: Venous U/S Left Arm - 09/05/2019 PROCEDURE: Left upper extremity venous duplex and color flow imaging study. EQUIPMENT: ApplyMapid E 9 ultrasound system with a 9 L-D transducer. DATE OF STUDY: 09/05/2019. REFERRING PHYSICIAN: Lance. PATIENT PROFILE: A 69-year-old female. MARKETING ADMIN: Kesha. INDICATIONS: Previous history of internal jugular vein thrombosis on the left. The patient also has a chronically occluded left upper extremity AV graft. FINDINGS: There is still a deep venous thrombosis involving the left internal jugular vein. There was also evidence of thrombus in the left subclavian vein around a catheter. The brachial vein was compressible as was the superficial veins, remaining in the left upper extremity. INTERPRETATION: Persistent deep venous thrombosis involving the left internal jugular vein. There did appear to be some clot in the left subclavian vein around the dialysis catheter. There was no evidence of deep or superficial venous thrombosis involving the left upper extremity. cc: MD Tyree Padilla MD
--- NOTE | 2019-09-09 19:18 | CARDIOLOGY PROGRESS NOTE ---
DATE: 09/09/2019 SUBJECTIVE: Ms. Rangel has no complaints today. She actually reports her breathing has improved. PHYSICAL EXAMINATION: Vital Signs: Afebrile. Her blood pressure is 186/93. Systolics have been in the 140s to 180. Heart rate is 79. Her inputs and outputs are a total negative around 2 liters for the hospitalization. General: She is in no acute distress. Cardiovascular: She sounds to be in a regular rate and rhythm. She has minimal bilateral lower extremity edema. She has no increased work of breathing. Chest: Mild reduced breath sounds in the bilateral bases, but otherwise no increased work of breathing. PERTINENT DATA: White count 10.8, hematocrit 29, platelet count 175,000. Sodium 143, potassium is 4.2, BUN 38, creatinine is 2. Her proBNP was 3270, which is down from 11,000. ASSESSMENT: Ms. Rangel is a 69-year-old female with metastatic pancreatic cancer who presented with diastolic failure, marked hypertension. PLAN: I will increase her hydralazine to 75 t.i.d. I will replete her magnesium. Her volume status appears much better at this point. She is on oral diuretics. We have escalated her to b.i.d. dosing from her home daily dosing. Please contact us with further questions. At this point, I will sign off. cc: MD Tyree Dias MD
[2019-09-09] MEDS: REMERON PO SCH (20:54)
[2019-09-09] MEDS: XANAX PO PRN (20:54)
[2019-09-10] MEDS: DUONEB (A & A) INH SCH ×4 (03:55→23:01)
--- NOTE | 2019-09-10 04:43 | PROGRESS NOTE ---
DATE: 09/09/2019 SUBJECTIVE: The patient is a little better. Blood pressure still running high. She has a prior history of posterior reversible encephalopathy syndrome. PICC line was placed. I spoke to Dr. Mcintyre. He is willing to check the subclavian port on the left side of the chest. PHYSICAL EXAMINATION: Vital Signs: Temperature 98 degrees. Blood pressure is running high, 99% on room air. HEENT: Within normal limits. Chest: Clear. Heart: Sounds are regular. No peripheral edema. LABORATORY DATA: White cell count 2.8, hematocrit 29, and platelets 165,000. Sodium 143, potassium 4.2, BUN 38, creatinine 2.0, glucose 119, and magnesium 1.8. ProBNP was coming down. ASSESSMENT AND PLAN: 1. NPO after midnight for removal of the left Port-A-Cath. 2. Extensive subclavian axillary thrombosis. After that, we will keep her on Eliquis for 3 months. 3. Anemia, status post a unit of packed RBC. 4. Stage IV pancreatic cancer. Hold on chemotherapy. Last one was 08/29/2019. 5. Hypertension. Dr. Stout increasing the hydralazine, Coreg, and isosorbide. 6. Chronic kidney disease stable. 7. Type 2 diabetes. Lantus is on hold. Will follow up. LEVEL OF DOCUMENTATION: 25 minutes. cc: Tyere Lucas MD
[2019-09-10] MEDS: PRILOSEC PO SCH (06:48)
[2019-09-10] MEDS: HUMULIN R SUBQ SCH ×4 (06:48→23:26)
[2019-09-10] MEDS: DOXYCYCLINE PO SCH ×2 (09:20→23:25)
[2019-09-10] MEDS: LASIX PO SCH ×2 (09:20→23:26)
[2019-09-10] MEDS: COREG PO SCH ×2 (09:20→23:26)
[2019-09-10] MEDS: ISORDIL PO SCH ×5 (09:22→23:19)
[2019-09-10] MEDS: ROCEPHIN 1 GM in NS 50 ML IV SCH (09:29)
[2019-09-10] MEDS: APRESOLINE PO SCH ×4 (11:32→23:38)
--- NOTE | 2019-09-10 12:34 | GENERAL SURGERY PROGRESS NOTE ---
DATE: 09/10/2019 SUBJECTIVE: The patient is doing okay. She had a discussion with Dr. Lucas. She is now willing to have her port removed. OBJECTIVE: Vital Signs: The patient is currently afebrile. Her vital signs are stable. General: No acute distress. Cardiovascular: Regular rate and rhythm. Lungs: Grossly clear. Abdomen: Soft, nontender. ASSESSMENT AND PLAN: A 69-year-old female with deep venous thrombosis associated with indwelling subclavian port on the left. Port on the left. At this time, discussed with the patient, the risks, benefits, and alternatives of removal of the port. She is aware. Discussed with her the risk of dislodging the clot. Discussed the risks of anesthesia and bleeding. Will plan on doing the procedure today. Will make her nothing by mouth. cc: MD Tyree Toribio MD
[2019-09-10] MEDS ORDERED: SENSORCAINE-MPF 0.5%/EPI 1:200,000 ONE (16:33)
[2019-09-10] MEDS ORDERED: XYLOCAINE-MPF 2% ONE (16:34)
[2019-09-10] MEDS ORDERED: DIPRIVAN 1% ONE (16:34)
[2019-09-10] MEDS ORDERED: ULTRAM PO PRN (17:48)
[2019-09-10] MEDS ORDERED: APRESOLINE IV ONE (18:25)
[2019-09-10] MEDS: ZOLOFT PO SCH (18:41)
[2019-09-10] MEDS: REMERON PO SCH (23:19)
[2019-09-10] MEDS: XANAX PO PRN (23:25)
--- NOTE | 2019-09-11 00:33 | OPERATIVE NOTE ---
PROCEDURE DATE: 09/10/2019 PREOPERATIVE DIAGNOSES: 1. Port no longer needed. 2. Associated deep vein thrombus with port. POSTOPERATIVE DIAGNOSES: 1. Port no longer needed. 2. Associated deep vein thrombus with port. PROCEDURES: Removal of left subclavian port. SURGEON: Francisco Javier Saenz MD. DRAGLINE MECHANIC: None. ANESTHESIA: IV MAC with local administered by the surgeon. FINDINGS: Intact port removed. COMPLICATIONS: None at time of dictation. ESTIMATED BLOOD LOSS: 5 mL. SPECIMENS REMOVED: Port. BRIEF HISTORY: A 69-year-old female who had a DVT associated with the port, she needed to have it removed. The risks, benefits and alternatives were discussed. All questions answered. DESCRIPTION OF PROCEDURE: After informed consent was obtained. Patient brought to the operative theatre, placed in supine position. IV MAC anesthesia was then performed without complication. A formal time-out was then performed confirming patient and procedure, all are in agreement at that time. Attention to the left chest, it was prepped and draped sterile fashion. After the time- out, we used local anesthetic to anesthetize the skin over the port. Made an incision over it, we were able to dissect out the port itself, removed it from the capsule, removed it intact, placed a stitch at the tract going to the subclavian, held pressure. Then closed the skin with chromic. The patient tolerated the procedure well, had no change in her oxygen saturation at end of the procedure. cc: MD Tyree Toribio MD
--- NOTE | 2019-09-11 00:37 | PROGRESS NOTE ---
DATE: 09/10/2019 SUBJECTIVE: The patient is willing to remove the port on the left side. I spoke to Dr. Saenz, and after the procedure blood pressure is running high. OBJECTIVE: On examination, vital signs are stable. Chest is clear. Heart sounds are regular. Belly is soft, nontender. No neurological deficits. ASSESSMENT AND PLAN: 1. Port-A-Cath on the left side with subclavian thrombosis, removed. Continue on Eliquis 2.5 p.o. b.i.d. at least for 3 months. Peripherally inserted central catheter line on the right side for intravenous access. 2. Hypertension. Hydralazine 10 mg intravenous q.6 as needed to control the blood pressure. 3. Stage IV pancreatic cancer. Prolonged chemotherapy. If she is stable, we will discharge in the morning or . We will follow up. 4. Anemia. Transfused 1 unit of packed red blood cells. Level of documentation 25 minutes. cc: Tyree Lucas MD
[2019-09-11] MEDS: DUONEB (A & A) INH SCH ×4 (03:51→21:40)
[2019-09-11] MEDS: HUMULIN R SUBQ SCH ×3 (06:24→21:27)
[2019-09-11] MEDS: PRILOSEC PO SCH (06:49)
[2019-09-11] MEDS: ZOLOFT PO SCH (08:30)
[2019-09-11] MEDS: ISORDIL PO SCH ×3 (08:30→21:26)
[2019-09-11] MEDS: DOXYCYCLINE PO SCH ×2 (08:30→21:25)
[2019-09-11] MEDS: LASIX PO SCH ×2 (08:31→21:26)
[2019-09-11] MEDS: APRESOLINE PO SCH ×3 (08:31→21:25)
[2019-09-11] MEDS: COREG PO SCH ×2 (08:31→21:25)
[2019-09-11] MEDS: ROCEPHIN 1 GM in NS 50 ML IV SCH (08:56)
[2019-09-11] MEDS ORDERED: ZOFRAN IV PRN (09:52)
--- NOTE | 2019-09-11 10:13 | GENERAL SURGERY PROGRESS NOTE ---
DATE: 09/11/2019 SUBJECTIVE: The patient seems to be doing okay after her port removal. She has not had any shortness of breath. She has not had any issues with her oxygen saturations. PLAN: At this point from a surgical point of view, as long it is okay with her primary care physician, I think we can discharge her home. cc: MD Tyree Toribio MD
[2019-09-11 10:14] LABS: BASO# 0.06 X1000 (0.0-0.2); BASO% 1.2 % (0.0-0.8); EOS# 0.14 X1000 (0.0-0.7); EOS% 2.7 % (0.0-10.0); HEMATOCRIT 29.5 % (37.0-47.0); HEMOGLOBIN 9.2 g/dL (12.0-16.0); IMM GRAN# 0.04 X1000 (0.0-0.04); IMM GRAN% 0.8 % (0.0-0.5); LYMPH# 1.23 X1000 (1.2-3.4); LYMPH% 23.9 % (20.5-51.1); MCH 31.8 PG (27-31); MCHC 31.2 g/dL (33-37); MCV 102.1 FL (81-99); MONO# 0.78 X1000 (0.11-0.59); MONO% 15.1 % (1.7-9.3); MPV 10.6 FL (7.4-10.4); NEUT% 56.3 % (42.2-75.2); PLT 190 X1000 (130-400); RBC 2.89 XMIL (4.2-5.4); RDW 18.2 % (11.5-14.5); WBC 5.15 X1000 (4.8-10.8)
[2019-09-11 10:27] LABS: CALCIUM 8.2 mg/dL (8.8-10.2); POTASSIUM 3.9 mmol/L (3.5-5.1)
[2019-09-11 14:05] LABS: URINE SOURCE CLEAN CATCH
[2019-09-11 14:09] LABS: BILIRUBIN URINE NEGATIVE (NEGATIVE); BLOOD URINE NEGATIVE (NEGATIVE); COLOR YELLOW; GLUCOSE URINE NEGATIVE (NEGATIVE); KETONE URINE NEGATIVE (NEGATIVE); LEUKOCYTES URINE NEGATIVE (NEGATIVE); NITRITE URINE NEGATIVE (NEGATIVE); PROTEIN URINE NEGATIVE (NEGATIVE); SP GRAVITY URINE 1.009; TURBIDITY URINE CLEAR (CLEAR); UROBILINOGEN URINE NORMAL (NORMAL)
[2019-09-11 14:10] LABS: UR EPITHELIAL CELLS <10 /HPF (<10); URINE BACTERIA NEGATIVE /HPF; URINE RBC <10 /HPF (<10); URINE WBC <10 /HPF (<10)
[2019-09-11] MEDS: REMERON PO SCH (21:26)
[2019-09-11] MEDS: XANAX PO PRN (21:35)
--- NOTE | 2019-09-12 02:35 | PROGRESS NOTE ---
DATE: 09/11/2019 SUBJECTIVE: This morning the patient has a fever, a little bit of nausea. Blood pressure is still running high. OBJECTIVE: Temperature is 98 degrees. Vital signs are stable. HEENT exam within normal limits. Left arm swelling is much improved. PICC line on the right side. Bilateral air entry. Heart sounds are regular. No obvious deficits. LABORATORY DATA: White cell count 5, hematocrit 29, platelets 190,000. SMA 7 is normal. Urinalysis is clear. ASSESSMENT AND PLAN: 1. Shortness of breath, combination of chronic obstructive pulmonary disease. VQ scan was negative. 2. Chronic kidney disease, stable. 3. Subclavian thrombosis, left side. Removed the port. 4. Peripherally inserted central catheter line on the right side. 5. Hypertension, stable. 6. Stage IV pancreatic cancer, stable. Hold the chemotherapy. 7. If he is afebrile for the next 24, we will discharge in the morning. The patient is to continue on Eliquis 2.5 mg p.o. b.i.d. at least for the next 3 months to resolve the clot in the left axillary and subclavian internal jugular thrombosis. We will get some samples with social media sr strategy manager. Level of documentation is 25 minutes. cc: Tyree Lucas MD
[2019-09-12] MEDS: DUONEB (A & A) INH SCH (03:29)
[2019-09-12] MEDS: HUMULIN R SUBQ SCH (06:21)
[2019-09-12] MEDS: PRILOSEC PO SCH (06:21)
[2019-09-12 07:01] VITALS: BP 167/57
[2019-09-12] MEDS: COREG PO SCH (08:03)
[2019-09-12] MEDS: ISORDIL PO SCH (08:04)
[2019-09-12] MEDS: LASIX PO SCH (08:04)
[2019-09-12] MEDS: DOXYCYCLINE PO SCH (08:05)
[2019-09-12] MEDS: ZOLOFT PO SCH (08:05)
[2019-09-12] MEDS: APRESOLINE PO SCH (08:05)
--- NOTE | 2019-09-14 23:04 | DISCHARGE SUMMARY ---
ADMISSION DATE: 09/03/2019 DISCHARGE DATE: 09/12/2019 DISCHARGING DIAGNOSIS: Acute shortness of breath due to underlying chronic obstructive pulmonary disease (COPD) and diastolic heart failure. SECONDARY DIAGNOSES: 1. Internal jugular thrombosis extending into subclavian, axillary with underlying Port-A- Catheter. 2. Chronic obstructive pulmonary disease (COPD), oxygen dependent. 3. Chronic kidney disease, stage III off dialysis. 4. Noncritical coronary artery disease (CAD). 5. Hypertension. 6. Depression. 7. Stage IV metastatic pancreatic cancer under chemotherapy. 8. Anemia due to chemotherapy. 9. Type 2 diabetes. 10. Acid reflux disease. 11. IgG kappa monoclonal gammopathy. 12. History of posterior reversible encephalopathy syndrome. 13. Malfunction of the arteriovenous graft in the left arm. CONSULTS: Dr. Saenz, Dr. Danis Stout. PROCEDURES: 1. Removal of Port-A-Cath on the left side. 2. Peripherally inserted central catheter (PICC) line on the right side of the arm. 3. Transfusion of 1 unit of packed RBCs. BRIEF HISTORY: Please see the history and physical that was done by hospitalist. In brief, she is a 69-year-old white female, has been battling with stage IV pancreatic cancer, under chemotherapy by [facility], and came in with elevated blood pressure, shortness of breath, swelling of left arm and not taking Eliquis. HOSPITAL COURSE: 1. The patient was found to have mild pancytopenia from chemotherapy and did receive a unit of packed RBCs. 2. Substantially elevated blood pressure for which controlled by optimizing, increasing the hydralazine. 3. For the evaluation of shortness of breath and positive D-dimer, V/Q scan was done with low probability. 4. Patient continues to have swelling on the left arm. Follow up on venous Doppler showed extension of thrombosis and we put her on PICC line on the right side and Dr. Saenz did remove the Port-A-Cath and the swelling was much improved. Rest of the hospital course was uneventful. LABS: At the time of discharge as follows: White cell count 5.1, hematocrit 29.5, platelets 190,000. Sodium 138, potassium 3.9, chloride 100, BUN 40, creatinine 2.0, glucose 124. Urinalysis is clear. Stool for occult blood was negative. C diff S toxin assay was negative. DISCHARGE INSTRUCTIONS: 1. Pneumococcal vaccine 23 was given 06/04/2017, Coreg 25 p.o. b.i.d., Remeron 7.5 at bedtime, Lantus 10 units in the morning, Prilosec 20 daily, Zoloft 50 daily, Zyrtec 10 daily, Xanax 0.25 at bedtime, Lasix 40 daily, Eliquis 2.5 p.o. b.i.d. for 1 month, hydralazine 50 mg t.i.d. and control the blood pressure. 2. Follow up in my office in 10 days. cc: MD Danis Cutler MD Dr. Figh
== END 2019-09-12 10:28 | disposition home health service (06) | DRG 291 ==
LOC: ED 14:31 → EDIPHOLD 23:17 → SUATTDRO 23:17 → 3N 09-04 01:25
PROVIDERS: ADMIT Internal Medicine; ATTEND Internal Medicine